=== PATIENT | female | born 1935 | race Caucasian/White ===

== ENCOUNTER 2017-04-30 18:02 | Inpatient (IN) | payer MEDICARE, OTHER ==
[2017-04-30] MEDS ORDERED: Digoxin TAB* 0.125 MG PO ONE (19:45)
[2017-04-30 20:00] LABS: Urine Appearance Clear; Urine Blood Negative (Negative); Urine Color Yellow; Urine Ketones Negative (Negative); Urine Protein Negative (Negative); Urine Specific Gravity 1.009 (1.010-1.030); Urine Urobilinogen Negative (Negative)
--- NOTE | 2017-04-30 20:12 | RAD ---
INDICATION: Syncope. On Coumadin COMPARISON: CT brain August 28, 2015 TECHNIQUE: Noncontrast axial source images were acquired from the skull base to the vertex. FINDINGS: Ventricles/sulci: There is age-related cortical atrophy with compensatory dilatation of the CSF spaces. Brain parenchyma: There is periventricular and subcortical white matter change compatible with chronic ischemia. Intracranial hemorrhage:None. Extra-axial spaces: There are no abnormal extra axial fluid collections or evidence of extra-axial mass. Calvarium: There is no calvarial fracture or other calvarial abnormality. Scalp: There is no evidence of scalp or extracalvarial soft tissue abnormality. Paranasal sinuses/mastoid: The paranasal sinuses and mastoid air cells are clear. Other: None. IMPRESSION: Cortical atrophy with chronic microvascular ischemic change. No acute findings
--- NOTE | 2017-04-30 20:15 | RAD ---
INDICATION: Syncope. Neck pain. COMPARISON: None TECHNIQUE: Noncontrast axial source images was performed from the skull base to the thoracic inlet. Coronal and and sagittal reformatted images were generated. FINDINGS: Vertebrae: There is no fracture or acute focal bony lesion. There is degenerative spurring from the anterior vertebrae from C4 through C7. There is minor uncinate process spurring and facet arthropathy at C5-C6 and C6-C7. Alignment: The craniocervical junction appears normal. The cervical vertebrae are normally aligned. Central Canal: There are no significant CT abnormalities of the central canal or foramina. MR imaging is a more sensitive method to evaluate the canal and foramina. Intervertebral disc spaces: Moderate disc space narrowing at C5-C6 and C6-C7. Brain: The visualized brain appears unremarkable. Soft tissues: The visualized soft tissue elements of the neck are unremarkable. The prevertebral soft tissues appear normal. The lung apices are clear. IMPRESSION: AGE-RELATED MID TO LOWER CERVICAL SPINE OSTEOARTHRITIS. NO ACUTE FINDINGS
--- NOTE | 2017-04-30 20:24 | RAD ---
INDICATION: Right shoulder pain COMPARISON: None TECHNIQUE: AP and Y views were obtained. FINDINGS: There is a comminuted proximal humeral and axial fracture with mild angular deformity. The fractures imaged only in part on this shoulder series The a.c. and glenohumeral joints are intact. IMPRESSION: COMMINUTED PROXIMAL HUMERAL FRACTURE.
--- NOTE | 2017-04-30 20:24 | RAD ---
INDICATION: Proximal humeral fracture COMPARISON: Right shoulder same date TECHNIQUE: AP and lateral views were obtained. FINDINGS: There is a severely comminuted fractures involving the proximal and middle thirds of the humeral diaphysis. There is minor angular deformity. No other fractures are evident. IMPRESSION: COMMINUTED PROXIMAL HUMERAL FRACTURE.
--- NOTE | 2017-04-30 20:24 | RAD ---
INDICATION: Fall. Humeral fracture. COMPARISON: Right humerus same date TECHNIQUE: An seated AP portable view obtained at 2005 hours is submitted. FINDINGS: Bones/Soft Tissues: There is a proximal humeral fracture. Please refer to separate report.. Cardiomediastinal: The cardiomediastinal silhouette is normal. There is left-sided cardiac pacemaker. Lungs: There are no infiltrates. Pleura: There are no pleural effusions. Other: None IMPRESSION: NO ACTIVE CARDIOPULMONARY DISEASE. HUMERAL FRACTURE.
[2017-04-30 20:39] LABS: ABS Basophils 0 10^3/ul (0-0.2); ABS Eosinophils 0 10^3/ul (0-0.6); ABS Lymphocytes 1.6 10^3/ul (1.0-4.8); ABS Monocytes 0.5 10^3/ul (0-0.8); ABS Neutrophils 7.4 10^3/ul (1.5-7.7); ABS Nucleated RBC 0 10^3/ul; Eosinophil % 0.1 % (0-6); Hematocrit 40 % (35-47); Hemoglobin 13.7 g/dl (12.0-16.0); Lymphocyte % 16.6 % (25-47); Mean Corpuscular HGB Conc 35 g/dl (31-36); Mean Corpuscular Hemoglobin 33 pg (27-31); Mean Corpuscular Volume 96 fL (80-97); Mean Platelet Volume 8 um3 (7.4-10.4); Nucleated Red Blood Cells % 0.1; Platelet Count 251 10^3/ul (150-450); Red Blood Count 4.12 10^6/ul (4.0-5.4); Red Cell Distribution Width 14 % (10.5-15); White Blood Count 9.6 10^3/ul (3.5-10.8)
[2017-04-30 20:48] LABS: INR 3.4 (0.77-1.02)
[2017-04-30 20:56] LABS: EGFR Non-African American 83.3 (>60)
[2017-04-30] MEDS ORDERED: Ondansetron INJ* 2 MG/ML VIAL IV ONE (21:03)
[2017-04-30] MEDS ORDERED: Morphine INJ* 2 MG/ML 1 ML CARPUJECT IV ONE (21:03)
[2017-04-30] MEDS ORDERED: Acetaminophen TAB* 325 MG PO ONE (21:04)
[2017-04-30] MEDS ORDERED: Ondansetron INJ* 2 MG/ML VIAL IV PRN (21:52)
[2017-04-30] MEDS ORDERED: Morphine INJ* 2 MG/ML 1 ML CARPUJECT IV PRN (21:52)
[2017-04-30] MEDS ORDERED: Senna TAB PO PRN (21:52)
[2017-04-30] MEDS ORDERED: Al Hydrox/Mg Hydrox/Simet LIQ* 30 ML UDC PO PRN (21:52)
[2017-04-30] MEDS ORDERED: Docusate CAP* 100 MG PO PRN (21:52)
[2017-04-30] MEDS: Acetaminophen TAB* 325 MG PO PRN (23:43)
[2017-04-30] MEDS: Baclofen TAB* 10 MG PO SCH (23:43)
--- NOTE | 2017-05-01 04:46 | HP ---
CC: Jo Leon MD; Lori Chavarria MD * HISTORY AND PHYSICAL: DATE OF ADMISSION: 04/30/17 PRIMARY CARE PHYSICIAN: Jo Leon MD ADVERTISING EXECUTIVE: Lori Chavarria MD TIME OF EVALUATION: 2100. TIME OF EVALUATION: Syncope. HISTORY OF PRESENT ILLNESS: This is an 81-year-old female with a past medical history of CVA with residual left-sided weakness, atrial fibrillation, on anticoagulation, who presented to the emergency room after having a syncopal event. The patient has been under a lot of stress lately. Her partner has been at [facility], is getting discharged home tomorrow. She was standing up from her recliner that raises up. Normally, she puts her feet under her and she stands for a few seconds. This time, she just stood up and then started moving and she thinks she passed out and she thinks her right arm hit the side of the bed. She had her phone on her and was able to call her daughter who was already over at [facility], which is 2 minutes away from her, and came over and called EMS to bring her over here. The patient denies any lightheadedness. No dizziness. No nausea. No shortness of breath. No chest pain. No abdominal pain. No dysuria. No fevers. No URI symptoms. She had a UTI a month ago. Her appetite has been adequate. No medication changes; however, with her partner who has been her primary caregiver being in [facility], she has been administering her own meds and the daughter noticed that there are some doubled up meds including digoxin in her pill box. She does have a history of vasovagal in the past triggered by heat, dehydration, stress, but this happened 12 years ago. Otherwise, remaining review of systems is negative. In the emergency room, the patient had labs, imaging. She was given Zofran 4 mg, 2 mg of morphine, digoxin 0.125 mg, and Tylenol. She had a posterior splint placed on her right humerus fracture and was referred to the hospitalist service for further evaluation. PAST MEDICAL HISTORY: 1. History of presumed vasovagal syncope. 2. History of CVA with residual left-sided weakness, ambulates with a cane. 3. History of atrial fibrillation, on anticoagulation. 4. History of hypothyroidism. 5. History of left humeral fracture in 2014. 6. Hypertension. 7. Pacemaker placed presumably per family due to atrial fibrillation. MEDICATIONS: 1. Amiodarone 200 mg p.o. daily. 2. Baclofen 2 mg t.i.d. 3. Cardizem 120 mg p.o. daily. 4. Warfarin 2 mg daily. 5. Digoxin 25 mcg daily. 6. Levothyroxine 100 mcg daily. 7. Atorvastatin 40 mg daily. 8. Losartan 50 mg daily. 9. Glucosamine chondroitin daily. 10. Magnesium complex 600 mg p.o. b.i.d. 11. Vitamin C SR 1000 mg daily. 12. Vitamin D3 2000 international units daily. ALLERGIES: SULFA, SULFAMETHOXAZOLE, and TRIMETHOPRIM. SOCIAL HISTORY: The patient lives at home. Her partner, Ankita White, who has been at [facility] for a back injury is getting released tomorrow, who is normally her primary caregiver. She ambulates with a cane. She is independent with her ADLs. No smoking, alcohol, or illicit drug use history. Her healthcare proxy is Ankita White, her partner. Code status at this point is full code. I did give a MOLST form to review. FAMILY HISTORY: Mother at age 76 from cardiac issues. Father at age 56 from lung cancer. REVIEW OF SYSTEMS: A 14-point review of systems as mentioned in the HPI, otherwise negative. PHYSICAL EXAMINATION GENERAL: No acute distress. Resting comfortably with her daughter at bedside. VITAL SIGNS: Temp 97.6, pulse rate 86, respiratory rate 16, oxygen saturation 96% on room air, and blood pressure 168/100. HEENT: Head: Normocephalic. Pupils are equal and reactive, anicteric. Oropharynx: Mucous membranes are moist. NECK: Supple. No lymphadenopathy. RESPIRATORY: Diminished breath sounds. No wheezing, rhonchi, or rales. CARDIAC: Regular rate and rhythm. Soft systolic murmur heard throughout. ABDOMEN: Soft, nontender, nondistended. EXTREMITIES: No clubbing, cyanosis, or edema. +1 DPs. The patient with a splint in her right upper extremity. Good cap refill. Fingers are warm. NEUROLOGIC: Alert and oriented x3. No focal neurologic deficits. LABORATORY DATA: White count 9.6, hemoglobin 13.7, hematocrit 40, platelets 251. INR is 3.40. Sodium 136, potassium 4.2, chloride 102, bicarb 26, BUN 14, creatinine 0.68, glucose 128. AST 61. Troponin 0.01. TSH is 3.0. UA is unremarkable. RADIOGRAPHIC DATA: 1. Head CT: Cortical atrophy with chronic microvascular ischemic change, no acute findings. 2. Chest x-ray: No active cardiopulmonary disease. 3. EKG shows paced rhythm and flattened T waves. 4. Cervical spine CT: Age-related mid to lower cervical spine osteoarthritis, no acute findings. 5. Shoulder x-ray: Comminuted proximal humeral fracture. ASSESSMENT: This is an 81-year-old female with past medical history of CVA with residual left-sided weakness, who has pacemaker due to atrial fibrillation , presented to the emergency room with syncope suffering a right comminuted humerus fracture. 1. Syncope. Assessment: Family states she has a history of vasovagal syncope in the past; however, no prodromal symptoms. It was on standing. There is concern for polypharmacy as she has not been dosing her medications inappropriately. There is also concern for a cardiac event. She is asymptomatic at this time. Plan: We will check a digoxin level before resuming this. She did get a dose in the emergency room. We will continue her cardiac medications as prescribed. Continue to trend her troponin. Check an echocardiogram. Recommend having her pacemaker interrogated in the morning. 2. Right humerus comminuted fracture. I spoke with Dr. Henry and she will see her in the morning. Consult has been placed. We will order pain control and bowel regimen. 3. Chronic medical problems, atrial fibrillation, on anticoagulation. She is supratherapeutic on her Coumadin. We will have pharmacy doses and hold her dose for today. Continue her Cardizem. 4. History of stroke. Continue her baclofen. 5. Hyperlipidemia. Continue her atorvastatin. 6. Hypothyroidism. Continue her Synthroid. 7. FEN. Place the patient on heart healthy diet. 8. DVT prophylaxis. The patient is on Coumadin. 9. Disposition planning, we will place a PT consult with residual left-sided weakness and the patient is using her right arm to ambulate with a cane. She may need acute rehab. 10. Code status. Full code. They have been given a MOLST form to review. PATIENT TIME: Greater than 65 minutes was spent doing the history and physical , more than half the time was in direct patient contact. [id number]/[facility] #: [id number] [facility] MED[facility] CENTERKristopher
[2017-05-01] MEDS: Acetaminophen TAB* 325 MG PO PRN (05:56)
[2017-05-01] MEDS: Levothyroxine TAB* 100 MCG TAB PO SCH (05:56)
[2017-05-01 06:06] LABS: ABS Basophils 0 10^3/ul (0-0.2); ABS Eosinophils 0 10^3/ul (0-0.6); ABS Lymphocytes 2.2 10^3/ul (1.0-4.8); ABS Monocytes 0.7 10^3/ul (0-0.8); ABS Neutrophils 7.1 10^3/ul (1.5-7.7); ABS Nucleated RBC 0 10^3/ul; Eosinophil % 0.1 % (0-6); Hematocrit 35 % (35-47); Hemoglobin 12.2 g/dl (12.0-16.0); Lymphocyte % 21.6 % (25-47); Mean Corpuscular HGB Conc 35 g/dl (31-36); Mean Corpuscular Hemoglobin 33 pg (27-31); Mean Corpuscular Volume 96 fL (80-97); Mean Platelet Volume 8 um3 (7.4-10.4); Nucleated Red Blood Cells % 0.1; Platelet Count 231 10^3/ul (150-450); Red Cell Distribution Width 14 % (10.5-15); White Blood Count 10.1 10^3/ul (3.5-10.8)
[2017-05-01 06:13] LABS: INR 3.09 (0.77-1.02)
[2017-05-01 06:23] LABS: EGFR Non-African American 89.3 (>60)
[2017-05-01] MEDS: Magnesium Oxide TAB* 400 MG PO SCH (08:28)
[2017-05-01] MEDS: Diltiazem CD CAP* 120 MG PO SCH (08:28)
[2017-05-01] MEDS: Baclofen TAB* 10 MG PO SCH ×3 (08:28→20:57)
[2017-05-01] MEDS: Losartan TAB* 25 MG PO SCH (08:28)
[2017-05-01] MEDS: Amiodarone TAB* 200 MG PO SCH (08:29)
[2017-05-01] MEDS: oxyCODONE/Acetamin 5/325 MG* TAB PO PRN (09:55)
--- NOTE | 2017-05-01 12:06 | ECHO ---
Patient: LEONEL CRUZ [facility] Rec#: [id number] : 1935 Date: 05/01/2017 Age: 81y Height: 167.6 cm / 66.0 in Weight: 62.6 kg / 138.0 lbs Sex: F BSA: 1.7 Room#: 440 Admit Date#: 04/30/2017 Type: Inpatient Referring: Teresa Appiah Reading: Yoel Henriquez MD Control Panel Tester: Marlen Montero RN RDCS CC: Lori Chavarria MD CC: Jo Leon MD Transthoracic Echocardiogram Indication: Syncope BP: 119/61 HR: 61 Rhythm: Paced Findings History: A. fib, pacemaker, HTN, CVA, hypothyroidism. Technical Comments: The study quality is fair. Completed at 1140. Left Ventricle: The left ventricular chamber size is normal. Mild concentric left ventricular hypertrophy is observed. There is increased basal septal hypertrophy noted without evidence of an increased gradient across the left ventricular outflow tract. Global left ventricular wall motion and contractility are within normal limits. There is normal left ventricular systolic function. The estimated ejection fraction is 55-60%. There is abnormal ventricular septal wall motion consistent with right ventricular pacemaker. There is an E to A reversal in the mitral valve flow pattern suggestive of diastolic dysfunction. Left Atrium: The left atrial chamber size is normal. Right Ventricle: The right ventricular cavity size is normal. The right ventricular global systolic function is normal. Right Atrium: The right atrium is not well visualized. The right atrial cavity size is normal. Aortic Valve: The aortic valve is trileaflet. The aortic valve leaflets are mildly thickened. There is mild aortic regurgitation. There is no evidence of aortic stenosis. Mitral Valve: The mitral valve leaflets are mildly thickened. There is mild mitral regurgitation. There is no evidence of mitral stenosis. Tricuspid Valve: The tricuspid valve leaflets are normal. There is trace tricuspid regurgitation. Unable to estimate the right ventricular systolic pressure. There is no tricuspid stenosis. Pulmonic Valve: The pulmonic valve structure is not well visualized. There is no evidence of pulmonic regurgitation. There is no pulmonic stenosis. Pericardium: There is no significant pericardial effusion. A pericardial fat pad is visualized. Aorta: There is no dilatation of the ascending aorta. There is no dilatation of the aortic arch. There is no dilation of the aortic root. Pulmonary Artery: The main pulmonary artery is not well visualized. Venous: The inferior vena cava is not visualized. Summary: There are no significant changes when compared to the previous study done on 09/04/14 Conclusions Global left ventricular wall motion and contractility are within normal limits. There is normal left ventricular systolic function. The estimated ejection fraction is 55-60%. There is increased basal septal hypertrophy noted without evidence of an increased gradient across the left ventricular outflow tract. The right ventricular global systolic function is normal. There is mild aortic regurgitation. There is mild mitral regurgitation. There is trace tricuspid regurgitation. Unable to estimate the right ventricular systolic pressure. There is no dilatation of the ascending aorta. There are no significant changes when compared to the previous study done on 09/04/14 Measurements Name Value Normal Range RVDdMajor (2D) 2.6 cm (2.2 - 4.4) RAd ISD 4CH 4.8 cm (3.4 - 4.9) RA (A4C)W 2.9 cm (2.9 - 4.6) IVSd (2D) 1.1 cm (0.6 - 1) LVPWd (2D) 1.1 cm (0.6 - 1) LVIDd (2D) 4.4 cm (3.6 - 5.4) Aortic Annulus 1.9 cm (1.4 - 2.6) Ao root diameter (2D) 3.3 cm (2.1 - 3.5) Ascending Ao 3.4 cm (2.1 - 3.4) Aortic arch 2 cm (1.8 - 3.4) LA dimension (AP) 2D 3.6 cm (2.3 - 3.8) LAd ISD 4CH 5 cm (2.9 - 5.3) LA ISD 4CH W 3.6 cm (2.5 - 4.5) Name Value Normal Range LA ESV SP 4CH (A/L) 36 ml - LA ESV SP 2CH (A/L) 24 ml - LA ESV BP (A/L) 34 ml - LA ESV BP (A/L) index 20 ml/m2 - LA ESV SP 4CH (MOD) 35 ml - LA ESV SP 2CH (MOD) 23 ml - Name Value Normal Range MV E-wave Vmax 0.45 m/sec - MV deceleration time 283 msec - MV A-wave Vmax 1.1 m/sec - MV E:A ratio 0.4 ratio - LV septal e' Vmax 0.05 m/sec - LV lateral e' Vmax 0.08 m/sec - LV E:e' septal ratio 9 ratio - LV E:e' lateral ratio 5.6 ratio - Name Value Normal Range AV Vmax 1.4 m/sec - AV VTI 32 cm - AV peak gradient 7.3 mmHg - AV mean gradient 4.3 mmHg - LVOT Vmax 0.87 m/sec - LVOT VTI 19.9 cm - LVOT peak gradient 3 mmHg - LVOT mean gradient 1.8 mmHg - DAYANA Vmax 0.54 m/sec - Name Value Normal Range PV Vmax 0.71 m/sec -
--- NOTE | 2017-05-01 12:57 | PN ---
Subjective Date of Service: 05/01/17 Interval History: Pt is feeling well. She states the pain in her R wrist is controlled if she does not move. She states Dr. Henry was in this AM and recommended changing out her cast this afternoon. She has not had any episodes of CP, SOB or lightheadedness. Objective Active Medications: Acetaminophen (Tylenol Tab*) 650 mg PO Q4H PRN PRN Reason: FEVER/PAIN Last Admin: 05/01/17 05:56 Dose: 650 mg Al Hydrox/Mg Hydrox/Simethicone (Maalox Plus*) 30 ml PO Q6H PRN PRN Reason: INDIGESTION Amiodarone HCl (Cordarone Tab*) 200 mg PO DAILY [facility] Last Admin: 05/01/17 08:29 Dose: 200 mg Atorvastatin Calcium (Lipitor*) 40 mg PO 2100 [facility] Baclofen (Lioresal Tab*) 5 mg PO TID [facility] Last Admin: 05/01/17 08:28 Dose: 5 mg Digoxin (Lanoxin Tab*) 0.125 mg PO 1700 [facility] Diltiazem HCl (Cardizem Cd Cap*) 120 mg PO DAILY [facility] Last Admin: 05/01/17 08:28 Dose: 120 mg Docusate Sodium (Colace Cap*) 100 mg PO BID PRN PRN Reason: CONSTIPATION Levothyroxine Sodium (Synthroid Tab*) 100 mcg PO DAILY@0600 [facility] Last Admin: 05/01/17 05:56 Dose: 100 mcg Losartan Potassium (Cozaar Tab*) 50 mg PO DAILY [facility] Last Admin: 05/01/17 08:28 Dose: 50 mg Magnesium Oxide (Magox 400 Tab*) 400 mg PO DAILY [facility] Last Admin: 05/01/17 08:28 Dose: 400 mg Morphine Sulfate (Morphine Inj (Syringe)*) 2 mg IV Q4H PRN PRN Reason: PAIN Ondansetron HCl (Zofran Inj*) 4 mg IV Q4H PRN PRN Reason: NAUSEA/VOMITING Oxycodone/Acetaminophen (Percocet 5/325 Tab*) 1 tab PO Q4H PRN PRN Reason: Pain Last Admin: 05/01/17 09:55 Dose: 1 tab Pharmacy Profile Note (Coumadin Per Pharmacy*) 1 note FOLLOW UP .PER PHARMACY PROTOC [facility] PRN Reason: Protocol Pharmacy Profile Note (Coumadin Daily Reminder*) 1 note FOLLOW UP 1700 [facility] Senna (Senokot Tab*) 1 tab PO BID PRN PRN Reason: CONSTIPATION Warfarin Sodium (Coumadin Tab(*)) 2 mg PO 1700 [facility] Stop: 05/01/17 17:01 Vital Signs - 8 hr 05/01/17 05/01/17 05/01/17 07:44 09:00 09:55 Temperature 97.7 F Pulse Rate 63 Respiratory 16 16 16 Rate Blood Pressure 133/61 (mmHg) O2 Sat by Pulse 96 Oximetry 05/01/17 11:55 Temperature Pulse Rate Respiratory 16 Rate Blood Pressure (mmHg) O2 Sat by Pulse Oximetry Oxygen Devices in Use Now: None Appearance: Elderly female sitting up in bed, NAD Eyes: No Scleral Icterus Ears/Nose/Mouth/Throat: Mucous Membranes Moist Respiratory: Symmetrical Chest Expansion and Respiratory Effort, Clear to Auscultation Cardiovascular: NL Sounds; No Murmurs; No JVD, RRR, No Edema Abdominal: NL Sounds; No Tenderness; No Distention Extremities: No Clubbing, Cyanosis, - - R upper extremity in clean dry cast Skin: No Nodules or Sclerosis Neurological: Alert and Oriented x 3 Result Diagrams: 05/01/17 05:58 05/01/17 05:58 Assess/Plan/Problems-Billing Ms Drummond is an 81 yo F who has a h/o CVA with chronic L sided weakness, HTN, afib on coumadin and past h/o vasovagal syncope who presented to the ER after having a syncopal episode at home with resultant R comminuted humerus fracture. - Patient Problems (1) Syncope Current Visit: Yes Status: Acute Code(s): R55 - SYNCOPE AND COLLAPSE SNOMED Code(s): 882476374 Comment: ? orthostatic syncope as pt had just stood up before she passed out. Echo is without any concerning findings. No tele events. (2) Right humeral fracture Current Visit: Yes Status: Acute Code(s): S42.301A - UNSP FRACTURE OF SHAFT OF HUMERUS, RIGHT ARM, INIT SNOMED Code(s): 93511944 Comment: Dr. Henry has consulted. No report transcribed yet. From the patient it sounds like her cast will be replaced this afternoon. Continue prn pain control. (3) Afib Current Visit: Yes Status: Chronic Priority: High Code(s): I48.91 - UNSPECIFIED ATRIAL FIBRILLATION SNOMED Code(s): 70411545 Comment: Pt is currently paced. Continue digoxin and amiodarone. Continue coumadin as pt is not going to the OR. (4) HTN (hypertension) Current Visit: Yes Status: Acute Code(s): I10 - ESSENTIAL (PRIMARY) HYPERTENSION SNOMED Code(s): 83077468 Comment: BP is under good control. Continue losartan 50mg daily. (5) DVT prophylaxis Current Visit: Yes Status: Acute Priority: High Onset Date: 09/27/14 Code(s): CYL9586 - SNOMED Code(s): 003671859 Comment: Coumadin (6) Full code status Current Visit: Yes Status: Acute Code(s): Z78.9 - OTHER SPECIFIED HEALTH STATUS SNOMED Code(s): 665841516 (7) Hypothyroidism Current Visit: No Status: Chronic Code(s): E03.9 - HYPOTHYROIDISM, UNSPECIFIED SNOMED Code(s): 55490000 Comment: - TSH is normal - Continue current dose of synthroid.
--- NOTE | 2017-05-01 16:01 | PN ---
Progress Note - Progress Note Date of Service: 05/01/17 SOAP: Subjective: Pt. is doing well, 4/10 pain. Objective: RUE - skin intact - distally nvi with intact radial nerve before and after splint placement. Vital Signs: Temp Pulse Resp BP Pulse Ox 98.2 F 60 20 130/60 98 05/01/17 11:32 05/01/17 11:32 05/01/17 15:40 05/01/17 11:32 05/01/17 11:32 Assessment: 81 yo F s/p fall with comminuted displaced R humeral shaft fx Plan: Pt. had a posterior splint in place which ended at fx site - this was removed. Well padded coaptation splint applied to R arm. Pt. tolerated procedure well. Will obtain new R humerus and elbow xrays. F/u with Dr. Henry in 5-7 days for splint change.
[2017-05-01] MEDS ORDERED: Warfarin TAB(*) 2 MG PO ONE (17:00)
--- NOTE | 2017-05-01 17:15 | RAD ---
HISTORY: Status post splint placement COMPARISONS: April 30, 2017 VIEWS: 7, Frontal, lateral, and oblique views of the right elbow with frontal internal and external rotation views of the right humerus, performed in a splint which appears fine bone detail. FINDINGS: BONE DENSITY: Normal. BONES: Again noted is a comminuted fracture of the proximal humeral diaphysis. There is persistent displacement without significant angulation. The radial head is not well evaluated given the technique and the presence of a splint but appears to be dysplastic or possibly surgically absent. JOINTS: There is no arthropathy. ALIGNMENT: There is no dislocation. SOFT TISSUES: Unremarkable. OTHER FINDINGS: None. IMPRESSION: 1. LIMITED STUDY. 2. PERSISTENT COMMINUTED FRACTURE OF THE HUMERAL DIAPHYSIS. 3. QUESTIONABLE POSTSURGICAL VERSUS CHRONIC POST RIGHT CHANGES TO THE RADIAL HEAD. THE RADIAL HEAD IS NOT WELL EVALUATED GIVEN THE TECHNIQUE.
[2017-05-01] MEDS: Digoxin TAB* 0.125 MG PO SCH (17:22)
--- NOTE | 2017-05-01 17:36 | CONS ---
ORTHOPEDIC CONSULT NOTE: DATE OF CONSULT: 05/01/17 Thank you for this orthopedic consultation. CHIEF COMPLAINT: Right shoulder pain. HISTORY OF PRESENT ILLNESS: Ms. Drummond is an 81-year-old right hand dominant female who had a syncopal episode in her home. She reports she thinks this is vasovagal. She stood up and start moving without standing for a few seconds. She had loss of control of her bowels at the same time and she fell. She woke up with 10/10 pain in the right shoulder and arm. Any attempt to move the arm increased her pain, only immobilization decreased her pain. She was brought to [facility] and diagnosed with right humeral shaft fracture. I am consulted for orthopedic fracture care. She was admitted for observation and further evaluation of a syncopal episode. The patient denies pain elsewhere from the fall. PAST MEDICAL HISTORY: 1. History of vasovagal syncope. 2. CVA with residual left-sided weakness. 3. Atrial fibrillation. 4. Hypothyroidism. 5. Left femur fracture, 2014. 6. Hypertension. PAST SURGICAL HISTORY: 1. Pacemaker placement. 2. Left femur ORIF. HOME MEDICATIONS: 1. Amiodarone 200 mg p.o. daily. 2. Baclofen 2 mg p.o. t.i.d. 3. Cardizem 120 mg p.o. daily. 4. Warfarin 2 mg p.o. daily. 5. Digoxin 25 mcg p.o. daily. 6. Levothyroxine 100 mcg p.o. daily. 7. Atorvastatin 40 mg p.o. daily. 8. Losartan 50 mg p.o. daily. 9. Glucosamine and chondroitin 1 tablet p.o. daily. 10. Magnesium 600 mg p.o. b.i.d. 11. Vitamin C 1000 mg p.o. daily. 12. Vitamin D3, 2000 international units p.o. daily. ALLERGIES: 1. SULFA. 2. SULFAMETHOXAZOLE AND TRIMETHOPRIM. FAMILY HISTORY: Maternal, cardiac disease. Paternal, lung cancer. SOCIAL HISTORY: The patient lives at home with her . Her has been at [facility] for a lumbar compression fracture and has been discharged to home today. The patient normally ambulates with a cane due to left-sided weakness. No tobacco, alcohol, or recreational drug use. She has a daughter who lives close by and is very helpful. She has a full social support system. REVIEW OF SYSTEMS: The 14 systems were reviewed with the patient. Positive for the right shoulder and upper arm pain. Positive for the recent syncopal episode and fall. Negative for fevers, chills, chest pain, shortness of breath , nausea, vomiting, and headache or dizziness. Otherwise, the patient reports review of systems is negative or not relevant. PHYSICAL EXAM: Vital Signs: Temperature 98.2, pulse 63, blood pressure 119/ 61. General: The patient is a well-nourished female, in no apparent distress, alert and oriented x3, pleasant mood and appropriate affect. Chest: Unlabored breathing. HEENT: Atraumatic, normocephalic. Extremities: Right upper extremity, the patient has a posterior splint applied to the right upper extremity. No tenderness around the clavicle or proximal shoulder. Distally, she shows full extension of her thumb and all 4 fingers. Radial nerve appears to be intact with both motor and sensory. She has full sensation to light touch in all nerve distributions. Can give thumbs up and the okay sign as well as cross fingers. Less than 3 seconds capillary refill distally. 2+ palpable radial pulse. Left upper extremity, she can raise the arm. No bony tenderness to palpation. 2+ palpable radial pulse. Neurovascularly intact. Bilateral lower extremities, the patient's skin is intact. She has a healed left scar along her proximal femur. Distally, she is neurovascularly intact. 2+ palpable DP pulses. DIAGNOSTIC STUDIES/LAB DATA: Radiographs: Multiple views of the right shoulder and humerus show a displaced comminuted fracture of the entire proximal one third to 50% of the humeral shaft. The proximal humerus intra- articular region is not involved. Labs: On 05/01/17, labs show white blood cell 10.1, hematocrit 35, and platelets 231,000. INR 3.09. Sodium 133, potassium 4.2, chloride 103, BUN and creatinine 14 and 0.64 respectively. Urine is negative. Digoxin 1.0. ASSESSMENT AND PLAN: Ms. Drummond is an 81-year-old right hand dominant female status post syncopal episode and fall. She has a right displaced comminuted proximal humeral shaft fracture. The patient and I discussed both operative and nonoperative treatment options. She would like to try to heal this nonoperatively if at all possible. We discussed the risks and benefits of this. The patient is currently neurovascularly intact and in no apparent distress. We discussed a coaptation splint placement. I will need another dental assistant teacher for this. Plan will be to return later today to place a coaptation splint. Once she has formed callus, we can place her in a Beckett brace. She should have p.r.n. analgesia. She should be nonweightbearing right upper extremity. She will have the sling for comfort over the splint for now. Orthopedics will follow and change the splint today. [id number]/[facility] #: [id number] JASVIR
[2017-05-01] MEDS: Atorvastatin* 40 MG TAB PO SCH (20:57)
--- NOTE | 2017-05-02 01:52 | PN ---
Progress Note - Progress Note Date of Service: 05/02/17 Note: CAT call - Patient using bathroom with assistance. Stated she was felling lightheaded. As they walked her back to her bed she had a syncopal episode with LOC. Her vitals were ok. Paced rhythm on tele. She appeared pale and diaphoretic. Stated she felt weak. EKG showed atrial fib. Glucose >100. No chest pain. Appears vasovagal. Will give 500 cc bolus. REcommend pacer interrogation in AM
[2017-05-02] MEDS ORDERED: NS 0.9% 1000 ML* 1,000 ML IV ONE (01:54)
[2017-05-02 02:18] LABS: ABS Basophils 0.1 10^3/ul (0-0.2); ABS Eosinophils 0 10^3/ul (0-0.6); ABS Lymphocytes 4.1 10^3/ul (1.0-4.8); ABS Neutrophils 8.4 10^3/ul (1.5-7.7); ABS Nucleated RBC 0 10^3/ul; Eosinophil % 0.2 % (0-6); Hematocrit 36 % (35-47); Hemoglobin 12.1 g/dl (12.0-16.0); Lymphocyte % 30.4 % (25-47); Mean Corpuscular HGB Conc 34 g/dl (31-36); Mean Corpuscular Hemoglobin 33 pg (27-31); Mean Corpuscular Volume 97 fL (80-97); Mean Platelet Volume 9 um3 (7.4-10.4); Nucleated Red Blood Cells % 0.1; Platelet Count 268 10^3/ul (150-450); Red Blood Count 3.71 10^6/ul (4.0-5.4); Red Cell Distribution Width 14 % (10.5-15); White Blood Count 13.6 10^3/ul (3.5-10.8)
[2017-05-02 02:24] LABS: INR 2.69 (0.77-1.02)
[2017-05-02 02:38] LABS: EGFR Non-African American 74.4 (>60)
[2017-05-02] MEDS: Levothyroxine TAB* 100 MCG TAB PO SCH (06:02)
--- NOTE | 2017-05-02 07:13 | PN ---
Progress Note - Progress Note Date of Service: 05/02/17 SOAP: Subjective: Pt. reports R arm with moderate pain. She reports she had LOC overnight. Objective: RUE - sling intact - distally nvi with wrist/finger extension. Vital Signs: Temp Pulse Resp BP Pulse Ox 98.3 F 80 16 119/64 94 05/02/17 04:30 05/02/17 04:30 05/02/17 04:30 05/02/17 04:30 05/02/17 04:30 Laboratory Results - last 24 hr 05/02/17 05/02/17 05/02/17 01:40 02:10 02:10 WBC 13.6 H RBC 3.71 L Hgb 12.1 Hct 36 MCV 97 MCH 33 H MCHC 34 RDW 14 Plt Count 268 MPV 9 Neut % (Auto) 61.8 Lymph % (Auto) 30.4 Andrews % (Auto) 7.0 Eos % (Auto) 0.2 Baso % (Auto) 0.6 Absolute Neuts (auto) 8.4 H Absolute Lymphs (auto) 4.1 Absolute Monos (auto) 1.0 H Absolute Eos (auto) 0 Absolute Basos (auto) 0.1 Absolute Nucleated RBC 0 Nucleated RBC % 0.1 INR (Anticoag Therapy) 2.69 H Sodium Potassium Chloride Carbon Dioxide Anion Gap BUN Creatinine Est GFR ( Amer) Est GFR (Non-Af Amer) BUN/Creatinine Ratio Glucose POC Glucose (mg/dL) 161 H Calcium Troponin I 05/02/17 02:10 WBC RBC Hgb Hct MCV MCH MCHC RDW Plt Count MPV Neut % (Auto) Lymph % (Auto) Andrews % (Auto) Eos % (Auto) Baso % (Auto) Absolute Neuts (auto) Absolute Lymphs (auto) Absolute Monos (auto) Absolute Eos (auto) Absolute Basos (auto) Absolute Nucleated RBC Nucleated RBC % INR (Anticoag Therapy) Sodium 134 Potassium 4.0 Chloride 102 Carbon Dioxide 22 Anion Gap 10 BUN 16 Creatinine 0.75 Est GFR ( Amer) 95.6 Est GFR (Non-Af Amer) 74.4 BUN/Creatinine Ratio 21.3 H Glucose 169 H POC Glucose (mg/dL) Calcium 8.9 Troponin I 0.00 Assessment: 81 yo F with recurrent syncopal episodes - R humeral shaft fx we are treating nonop Plan: Cont splint and sling to RUE NWB RUE F/u ortho in 5-7 days. Ortho to follow
[2017-05-02] MEDS: Acetaminophen TAB* 325 MG PO PRN (09:28)
[2017-05-02] MEDS: Losartan TAB* 25 MG PO SCH (09:28)
[2017-05-02] MEDS: Baclofen TAB* 10 MG PO SCH ×3 (09:29→21:29)
[2017-05-02] MEDS: Amiodarone TAB* 200 MG PO SCH (09:29)
[2017-05-02] MEDS: Magnesium Oxide TAB* 400 MG PO SCH (09:30)
[2017-05-02] MEDS: Diltiazem CD CAP* 120 MG PO SCH (09:30)
--- NOTE | 2017-05-02 12:29 | PN ---
Subjective Date of Service: 05/02/17 Interval History: syncope after using bathroom last night. vomited afterward. got 500cc bolus. no events on tele during event s/p PPM check yesterday. Original event 5pm sunday after BM. orthostatic this AM. usually right handed. pain controlled. last BM sunday. Objective Active Medications: Acetaminophen (Tylenol Tab*) 650 mg PO Q4H PRN PRN Reason: FEVER/PAIN Last Admin: 05/02/17 09:28 Dose: 650 mg Al Hydrox/Mg Hydrox/Simethicone (Maalox Plus*) 30 ml PO Q6H PRN PRN Reason: INDIGESTION Amiodarone HCl (Cordarone Tab*) 200 mg PO DAILY [facility] Last Admin: 05/02/17 09:29 Dose: 200 mg Atorvastatin Calcium (Lipitor*) 40 mg PO 2100 [facility] Last Admin: 05/01/17 20:57 Dose: 40 mg Baclofen (Lioresal Tab*) 5 mg PO TID [facility] Last Admin: 05/02/17 09:29 Dose: 5 mg Digoxin (Lanoxin Tab*) 0.125 mg PO 1700 [facility] Last Admin: 05/01/17 17:22 Dose: 0.125 mg Diltiazem HCl (Cardizem Cd Cap*) 120 mg PO DAILY [facility] Last Admin: 05/02/17 09:30 Dose: 120 mg Docusate Sodium (Colace Cap*) 100 mg PO BID PRN PRN Reason: CONSTIPATION Last Admin: 05/02/17 09:30 Dose: 100 mg Sodium Chloride (Ns 0.9% 1000 Ml*) 1,000 mls @ 150 mls/hr IV PER RATE [facility] Stop: 05/02/17 18:29 Levothyroxine Sodium (Synthroid Tab*) 100 mcg PO DAILY@0600 [facility] Last Admin: 05/02/17 06:02 Dose: 100 mcg Losartan Potassium (Cozaar Tab*) 50 mg PO DAILY [facility] Last Admin: 05/02/17 09:28 Dose: 50 mg Magnesium Oxide (Magox 400 Tab*) 400 mg PO DAILY [facility] Last Admin: 05/02/17 09:30 Dose: 400 mg Morphine Sulfate (Morphine Inj (Syringe)*) 2 mg IV Q4H PRN PRN Reason: PAIN Last Admin: 05/01/17 15:40 Dose: 2 mg Ondansetron HCl (Zofran Inj*) 4 mg IV Q4H PRN PRN Reason: NAUSEA/VOMITING Last Admin: 05/02/17 02:00 Dose: 4 mg Oxycodone/Acetaminophen (Percocet 5/325 Tab*) 1 tab PO Q4H PRN PRN Reason: Pain Last Admin: 05/01/17 09:55 Dose: 1 tab Pharmacy Profile Note (Coumadin Per Pharmacy*) 1 note FOLLOW UP .PER PHARMACY PROTOC [facility] PRN Reason: Protocol Pharmacy Profile Note (Coumadin Daily Reminder*) 1 note FOLLOW UP 1700 [facility] Last Admin: 05/01/17 17:23 Dose: 1 note Senna (Senokot Tab*) 1 tab PO BID PRN PRN Reason: CONSTIPATION Last Admin: 05/02/17 09:30 Dose: 1 tab Warfarin Sodium (Coumadin Tab(*)) 2 mg PO 1700 [facility] Stop: 05/02/17 17:01 Vital Signs - 8 hr 05/02/17 05/02/17 05/02/17 04:30 07:28 08:00 Temperature 98.3 F 98.6 F Pulse Rate 80 66 Respiratory 16 16 16 Rate Blood Pressure 119/64 118/54 (mmHg) O2 Sat by Pulse 94 96 Oximetry 05/02/17 05/02/17 10:57 10:58 Temperature Pulse Rate 80 80 Respiratory Rate Blood Pressure 135/64 110/51 (mmHg) O2 Sat by Pulse Oximetry Oxygen Devices in Use Now: None Appearance: NAD Eyes: No Scleral Icterus, PERRLA Ears/Nose/Mouth/Throat: NL Teeth, Lips, Gums, Mucous Membranes Moist Neck: NL Appearance and Movements; NL JVP Respiratory: Symmetrical Chest Expansion and Respiratory Effort, Clear to Auscultation Cardiovascular: NL Sounds; No Murmurs; No JVD, RRR Abdominal: NL Sounds; No Tenderness; No Distention, No Hepatosplenomegaly Extremities: No Edema, No Clubbing, Cyanosis, - - right arm in splint and sling. Skin: No Rash or Ulcers, No Nodules or Sclerosis Neurological: Alert and Oriented x 3, NL Sensation, - - right arm in splint and sling. Nutrition: Taking PO's Result Diagrams: 05/02/17 02:10 05/02/17 02:10 Additional Lab and Data: Laboratory Results - last 24 hr 03/05/02/17 05/02/17 01:40 02:10 02:10 WBC 13.6 H RBC 3.71 L Hgb 12.1 Hct 36 MCV 97 MCH 33 H MCHC 34 RDW 14 Plt Count 268 MPV 9 Neut % (Auto) 61.8 Lymph % (Auto) 30.4 [place] % (Auto) 7.0 Eos % (Auto) 0.2 Baso % (Auto) 0.6 Absolute Neuts (auto) 8.4 H Absolute Lymphs (auto) 4.1 Absolute Monos (auto) 1.0 H Absolute Eos (auto) 0 Absolute Basos (auto) 0.1 Absolute Nucleated RBC 0 Nucleated RBC % 0.1 INR (Anticoag Therapy) 2.69 H Sodium Potassium Chloride Carbon Dioxide Anion Gap BUN Creatinine Est GFR ( Amer) Est GFR (Non-Af Amer) BUN/Creatinine Ratio Glucose POC Glucose (mg/dL) 161 H Calcium Troponin I 05/02/17 02:10 WBC RBC Hgb Hct MCV MCH MCHC RDW Plt Count MPV Neut % (Auto) Lymph % (Auto) [place] % (Auto) Eos % (Auto) Baso % (Auto) Absolute Neuts (auto) Absolute Lymphs (auto) Absolute Monos (auto) Absolute Eos (auto) Absolute Basos (auto) Absolute Nucleated RBC Nucleated RBC % INR (Anticoag Therapy) Sodium 134 Potassium 4.0 Chloride 102 Carbon Dioxide 22 Anion Gap 10 BUN 16 Creatinine 0.75 Est GFR ( Amer) 95.6 Est GFR (Non-Af Amer) 74.4 BUN/Creatinine Ratio 21.3 H Glucose 169 H POC Glucose (mg/dL) Calcium 8.9 Troponin I 0.00 Assess/Plan/Problems-Billing Ms Drummond is an 81 yo F who has a h/o CVA with chronic L sided weakness, HTN, afib on coumadin and past h/o vasovagal syncope who presented to the ER after having a syncopal episode at home with resultant R comminuted humerus fracture. - Patient Problems (1) Syncope Current Visit: Yes Status: Acute Code(s): R55 - SYNCOPE AND COLLAPSE SNOMED Code(s): 528617159 Comment: likely orthostatic syncope as pt had just stood up before she passed out. Orthostatic by BP (HR paced) this AM again. given more IVF. continue PT. Pt is not bedrest. OT ordered as pt is right handed using cane but now nonweight bearing. Pt may benefit from MARCO ANTONIO. Echo is without any concerning findings. No tele events during observed episode. (2) Right humeral fracture Current Visit: Yes Status: Acute Code(s): S42.301A - UNSP FRACTURE OF SHAFT OF HUMERUS, RIGHT ARM, INIT SNOMED Code(s): 93704352 Comment: Dr. Henry outpatient followup on Tuesday 05/09 9am nonoperative management w/ sling and splint. PT ordered OT. uses cane and is right handed at baseline. may need MARCO ANTONIO. Continue prn pain control. (3) DVT prophylaxis Current Visit: Yes Status: Acute Priority: High Onset Date: 09/27/14 Code(s): GTK0962 - SNOMED Code(s): 855563861 Comment: on coumadin for AFib. INR 2.69 (4) HTN (hypertension) Current Visit: Yes Status: Acute Code(s): I10 - ESSENTIAL (PRIMARY) HYPERTENSION SNOMED Code(s): 97793769 Comment: BP is under good control. Continue losartan 50mg daily. (5) Anemia Current Visit: No Status: Acute Priority: Medium Onset Date: 09/27/14 Code(s): D64.9 - ANEMIA, UNSPECIFIED SNOMED Code(s): 950959851 Comment: - 1U PRBC 09/21/14 with appropriate bump in h/h - iron studies c/w iron deficiency - Continue oral iron Status and Disposition: medicine inpatient.
[2017-05-02] MEDS ORDERED: NS 0.9% 1000 ML* 1,000 ML IV SCH (12:30)
[2017-05-02] MEDS: Digoxin TAB* 0.125 MG PO SCH (16:58)
[2017-05-02] MEDS ORDERED: Warfarin TAB(*) 2 MG PO ONE (17:00)
[2017-05-02] MEDS: Atorvastatin* 40 MG TAB PO SCH (21:29)
[2017-05-03] MEDS: Acetaminophen TAB* 325 MG PO PRN ×3 (03:40→14:41)
[2017-05-03 05:51] LABS: INR 3.86 (0.77-1.02)
[2017-05-03] MEDS: Levothyroxine TAB* 100 MCG TAB PO SCH (06:30)
[2017-05-03 07:38] LABS: Hematocrit 31 % (35-47); Hemoglobin 10.6 g/dl (12.0-16.0); Mean Corpuscular HGB Conc 34 g/dl (31-36); Mean Corpuscular Hemoglobin 34 pg (27-31); Mean Corpuscular Volume 97 fL (80-97); Mean Platelet Volume 8.8 um3 (7.4-10.4); Platelet Count 186 10^3/ul (150-450); Red Blood Count 3.17 10^6/ul (4.0-5.4); Red Cell Distribution Width 14 % (10.5-15); White Blood Count 8.6 10^3/ul (3.5-10.8)
[2017-05-03] MEDS: Losartan TAB* 25 MG PO SCH (08:05)
[2017-05-03] MEDS: Magnesium Oxide TAB* 400 MG PO SCH (08:05)
[2017-05-03] MEDS: Baclofen TAB* 10 MG PO SCH ×2 (08:06→14:04)
[2017-05-03] MEDS: Amiodarone TAB* 200 MG PO SCH (08:06)
[2017-05-03] MEDS: Diltiazem CD CAP* 120 MG PO SCH (08:06)
[2017-05-03] MEDS: oxyCODONE/Acetamin 5/325 MG* TAB PO PRN (11:22)
--- NOTE | 2017-05-03 11:56 | PN ---
Progress Note - Progress Note Date of Service: 05/03/17 SOAP: Subjective: []Patient seen at bedside with her son present. RUE is nonpainful and she has no numbness of RUE Objective: []General: Well appearing, NAD. Doing a crossword puzzle with her right hand. RUE: Coaptation splint and sling in place. No skin breakdown or irritation noted. Flexion and extension of wrist intact. Flexion, extension, abduction and adduction of all 5 digits intact. Able to produce a thumbs up, finger to thumb opposition intact. Sensation intact to light touch throughout the right hand including all digits. 2+ radial pulse, capillary refill less than five seconds distally. Assessment: []81 yo F s/p fall with comminuted displaced R humeral shaft fx Plan: []Nonweightbearing THOMAS Has FU in office with Dr Henry 05/09 for splint change Beckett brace once callus has formed. Vital Signs Temp 97.8 F 05/03/17 10:54 Pulse 64 05/03/17 10:54 Resp 16 05/03/17 11:22 BP 108/48 05/03/17 10:54 Pulse Ox 98 05/03/17 10:54 Intake & Output 05/02/17 05/03/17 05/03/17 18:59 06:59 18:59 Intake Total 1200 1000 200 Output Total 1100 450 300 Balance 100 550 -100 Intake: IV Fluids 1000 NS (0.9%) 1000 Oral 1200 0 200 Output: Urine 1100 450 300 Other: Estimated Void Medium Small # Bowel Movements 0 Estimated Stool Amount Small # Voids 2 Laboratory Last Values WBC 8.6 10^3/ul (3.5-10.8) 05/03/17 05:07 RBC 3.17 10^6/ul (4.0-5.4) L 05/03/17 05:07 Hgb 10.6 g/dl (12.0-16.0) L 05/03/17 05:07 Hct 31 % (35-47) L 05/03/17 05:07 MCV 97 fL (80-97) 05/03/17 05:07 MCH 34 pg (27-31) H 05/03/17 05:07 MCHC 34 g/dl (31-36) 05/03/17 05:07 RDW 14 % (10.5-15) 05/03/17 05:07 Plt Count 186 10^3/ul (150-450) 05/03/17 05:07 MPV 8.8 um3 (7.4-10.4) 05/03/17 05:07 Neut % (Auto) 61.8 % (38-83) 05/02/17 02:10 Lymph % (Auto) 30.4 % (25-47) 05/02/17 02:10 Major % (Auto) 7.0 % (0-7) 05/02/17 02:10 Eos % (Auto) 0.2 % (0-6) 05/02/17 02:10 Baso % (Auto) 0.6 % (0-2) 05/02/17 02:10 Absolute Neuts (auto) 8.4 10^3/ul (1.5-7.7) H 05/02/17 02:10 Absolute Lymphs (auto) 4.1 10^3/ul (1.0-4.8) 05/02/17 02:10 Absolute Monos (auto) 1.0 10^3/ul (0-0.8) H 05/02/17 02:10 Absolute Eos (auto) 0 10^3/ul (0-0.6) 05/02/17 02:10 Absolute Basos (auto) 0.1 10^3/ul (0-0.2) 05/02/17 02:10 Absolute Nucleated RBC 0 10^3/ul 05/02/17 02:10 Nucleated RBC % 0.1 05/02/17 02:10 INR (Anticoag Therapy) 3.86 (0.77-1.02) H 05/03/17 05:07 Sodium 134 mmol/L (133-145) 05/02/17 02:10 Potassium 4.0 mmol/L (3.5-5.0) 05/02/17 02:10 Chloride 102 mmol/L (101-111) 05/02/17 02:10 Carbon Dioxide 22 mmol/L (22-32) 05/02/17 02:10 Anion Gap 10 mmol/L (2-11) 05/02/17 02:10 BUN 16 mg/dL (6-24) 05/02/17 02:10 Creatinine 0.75 mg/dL (0.51-0.95) 05/02/17 02:10 Est GFR ( Amer) 95.6 (>60) 05/02/17 02:10 Est GFR (Non-Af Amer) 74.4 (>60) 05/02/17 02:10 BUN/Creatinine Ratio 21.3 (8-20) H 05/02/17 02:10 Glucose 169 mg/dL (70-100) H 05/02/17 02:10 POC Glucose (mg/dL) 161 mg/dL (70-100) H 05/02/17 01:40 Lactic Acid 1.5 mmol/L (0.5-2.0) 04/30/17 20:30 Calcium 8.9 mg/dL (8.6-10.3) 05/02/17 02:10 Magnesium 2.2 mg/dL (1.9-2.7) 04/30/17 20:30 Total Bilirubin 0.60 mg/dL (0.2-1.0) 04/30/17 20:30 AST 61 U/L (13-39) H 04/30/17 20:30 ALT 49 U/L (7-52) 04/30/17 20:30 Alkaline Phosphatase 97 U/L (34-104) 04/30/17 20:30 Troponin I 0.00 ng/mL (<0.04) 05/02/17 02:10 Total Protein 6.9 g/dL (6.4-8.9) 04/30/17 20:30 Albumin 4.0 g/dL (3.2-5.2) 04/30/17 20:30 Globulin 2.9 g/dL (2-4) 04/30/17 20:30 Albumin/Globulin Ratio 1.4 (1-3) 04/30/17 20:30 TSH 3.01 mcIU/mL (0.34-5.60) 04/30/17 20:30 Urine Color Yellow 04/30/17 19: Urine Appearance Clear 04/30/17 19: Urine pH 7.0 (5-9) 04/30/17 19: Ur Specific [place] 1.009 (1.010-1.030) L 04/30/17 19:26 Urine Protein Negative (Negative) 04/30/17 19: Urine Ketones Negative (Negative) 04/30/17 19: Urine Blood Negative (Negative) 04/30/17 19: Urine Nitrate Negative (Negative) 04/30/17 19: Urine Bilirubin Negative (Negative) 04/30/17 19: Urine Urobilinogen Negative (Negative) 04/30/17 19: Ur Leukocyte Esterase Negative (Negative) 04/30/17 19: Urine Glucose Negative (Negative) 04/30/17 19: Urine Ascorbic Acid * (Negative) A 04/30/17 19: Digoxin 1.0 ng/ml (0.8-2.0) 04/30/17 20:30
--- NOTE | 2017-05-03 15:13 | DS ---
CC: Teresa Appiah MD; Jo Leon MD; Lori Chavarria MD; Angela Henry MD * DISCHARGE SUMMARY DATE OF ADMISSION: 04/30/17 DATE OF DISCHARGE: 05/03/17 ADMITTING PROVIDER: Teresa Appiah MD PRIMARY CARE PHYSICIAN: Jo Leon MD OUTPATIENT ENGINE SERVICE REPAIRER: Lori Chavarria MD ATTENDING PHYSICIAN: Dave Hernandez MD CHIEF COMPLAINT: Fall and right arm pain. PRINCIPAL DIAGNOSIS: Right humerus comminuted fracture in the setting of syncope, most likely vasovagal complicated by orthostatic hypotension. HISTORY OF PRESENT ILLNESS/HOSPITAL COURSE: Elizabeth Drummond is an 81-year-old female with past medical history of CVA with residual left-sided leg weakness, atrial fibrillation on amiodarone, digoxin and Coumadin, hypertension, hypothyroidism, status post pacemaker placement, history of vasovagal syncope who presents with fall. She was unclear if she lost consciousness. She got up a little bit more quickly than usual. Her right arm hit the side of her bed. There was some concern that she had doubled up on some of her medications including likely her digoxin, but only for one day. This was in the setting of her partner/primary neurocritical care physician (Ankita) being herself at a [facility]. On presentation to [facility] she was found to have a right humerus comminuted fracture which was evaluated by Dr. Henry of orthopedics and managed nonoperatively with sling and splints. She had her pacemaker checked and no settings were changed. There were no episodes recorded during the time of syncope which happened around 5 p.m. day of admission. She was found to be orthostatic, she was given IV fluids. She had additional syncopal event the night of 05/01/17. This happened after she was returning and just stood up after using the restroom. She did attest to loss of consciousness at that time. There was no telemetry abnormalities recorded during this event other than a small segment of noise lasting a few seconds. She had negative troponins during the stay. She had a CT of the brain on admission which showed cortical atrophy with chronic microvascular ischemic changes with no acute findings. She had a transthoracic echocardiogram on 04/30/17 which demonstrated E to A reversals suggestive of diastolic dysfunction and preserved ejection fraction of 55% to 60%. There was trace tricuspid regurgitation, mild mitral regurgitation, mild aortic regurgitation and there was increased basal septal hypertrophy without evidence of increased gradient across the left ventricular outflow tract. She worked with physical therapy and occupational therapy, and they are recommending continuing treatment given her baseline use of a cane, given her left-sided CVA associated weakness and now dominant hand is being nonweightbearing in the setting of complicated right humerus fracture. She is being discharged to [facility] for continued physical therapy. Her orthostatics were checked again on the day of discharge and had improved - she was not orthostatic day of discharge. She is recommended to have her losartan stopped (it was 50 mg) given blood pressures between 108 and 120s on day of discharge. She did have a reduction of her warfarin on discharge to 1 mg daily to be started on 05/04, Sunday, given elevated INR both on admission at 3.4 and then again on day of discharge, when it had increased from 2.7 to 3.86 in the space of 24 hours, this was in the setting of getting 2 mg on 05/01 and 2 mg on 05/02, had been held on admission. DISCHARGE MEDICATIONS: Include: 1. Amiodarone 200 mg p.o. daily. 2. Ascorbic acid 1000 mg p.o. daily. 3. Atorvastatin 40 mg p.o. daily. 4. Baclofen 5 mg b.i.d. and 10 mg daily. 5. Cholecalciferol 2000 units p.o. daily. 6. Digoxin 0.125 mg p.o. daily. 7. Diltiazem 120 mg p.o. daily. 8. Docusate 100 mg p.o. b.i.d. (new). 9. Glucosamine chondroitin capsule p.o. daily. 10. Synthroid 100 micrograms p.o. daily. 11. Magnesium complex 600 mg p.o. b.i.d. 12. Percocet 5/325 mg of oxycodone/acetaminophen 1 tab p.o. every 4 hours p.r.n.. 13. Senna 1 tab p.o. b.i.d. p.r.n. 14. Warfarin 1 mg p.o. daily to start on 05/04/17 (reduction from previous 2 mg daily). DIET: No restrictions. ACTIVITY LEVEL: Nonweightbearing to the right upper extremity. FOLLOWUP: 1. Dr. Jo Cummings within 3-5 days of discharge from [facility]. 2. Dr. Angela Henry, Orthopedics, on 05/09/17. Patient planned to have a Beckett brace once callus has formed. She is using a 4- based cane with ambulation. She is to have an INR checked within 3 days of discharge. TIME TO PREPARE DISCHARGE: 35 minutes. [id number]/[facility] #: [id number] MTDD
[2017-05-03 15:58] VITALS: BP 124/56
[2017-05-03] MEDS ORDERED: Warfarin TAB(*) 1 MG PO ONE (17:00)
== END 2017-05-03 15:51 | DRG 312 ==
LOC: ED 18:02 → MEDTELE 21:52
PROVIDERS: ADMIT Pediatrics; ATTEND Internal Medicine
PROC: 2W3EX1Z Immobilization of Right Hand using Splint (ICD-10-PCS; principal; 2017-04-30)
PROC: 4B02XSZ Measurement of Cardiac Pacemaker, External Approach (ICD-10-PCS; 2017-05-01)
DX: I95.1 Orthostatic hypotension (principal); I48.91 Unspecified atrial fibrillation; I08.3 Combined rheumatic disorders of mitral, aortic and tricuspid valves; S42.351A Displaced comminuted fracture of shaft of humerus, right arm, initial encounter for closed fracture; W19.XXXA Unspecified fall, initial encounter; E03.9 Hypothyroidism, unspecified; I10 Essential (primary) hypertension; R79.1 Abnormal coagulation profile; E78.5 Hyperlipidemia, unspecified; M25.531 Pain in right wrist; D64.9 Anemia, unspecified; Z95.0 Presence of cardiac pacemaker; Z88.2 Allergy status to sulfonamides; I69.354 Hemiplegia and hemiparesis following cerebral infarction affecting left non-dominant side; Z87.440 Personal history of urinary (tract) infections; Z79.01 Long term (current) use of anticoagulants; Z88.8 Allergy status to other drugs, medicaments and biological substances; Z82.49 Family history of ischemic heart disease and other diseases of the circulatory system; Z80.1 Family history of malignant neoplasm of trachea, bronchus and lung; Y92.009 Unspecified place in unspecified non-institutional (private) residence as the place of occurrence of the external cause
CPT/HCPCS: 36415; 70450; 71045; 72125; 80048; 80053; 80162; 81003; 83605; 83735; 84443; 84484; 85025; 85027; 85610; 93005; 93306; 99284; A9270-GY; G8978-GP-CJ; G8979-GP-CI; G8987-GO-CK; G8988-GO-CI; J2270; J2405

== ENCOUNTER 2017-05-05 11:01 | Inpatient (IN) | payer MEDICARE, OTHER ==
--- NOTE | 2017-05-05 11:46 | RAD ---
HISTORY: Syncope COMPARISONS: April 30, 2012 TECHNIQUE: Multiple contiguous axial CT scans were obtained of the head without intravenous contrast. FINDINGS: HEMORRHAGE/INFARCT: There is no hemorrhage or acute infarct. MASSES/SHIFT: There is no mass or shift. EXTRA-AXIAL SPACES: There are no extra-axial fluid collections. SULCI AND VENTRICLES: There is diffuse and proportional enlargement of the sulci and ventricles. CEREBRUM: There are no focal parenchymal abnormalities. BRAINSTEM: There are no focal parenchymal abnormalities. CEREBELLUM: There are no focal parenchymal abnormalities. VESSELS: The vessels are grossly normal. PARANASAL SINUSES: The paranasal sinuses are clear. ORBITS: The orbits are unremarkable. BONES AND SOFT TISSUE: No bone or soft tissue abnormalities are noted. OTHER: None IMPRESSION: NO ACUTE INTRACRANIAL PATHOLOGY. CHRONIC SMALL VESSEL ISCHEMIC CHANGE
--- NOTE | 2017-05-05 12:04 | RAD ---
HISTORY: Syncope COMPARISONS: April 30, 2017 VIEWS: 4: Frontal dual-energy and lateral views of the chest. FINDINGS: CARDIOMEDIASTINAL SILHOUETTE: The cardiomediastinal silhouette is normal. CROW: The crow are normal. PLEURA: The costophrenic angles are sharp. No pleural abnormalities are noted. LUNG PARENCHYMA: The lungs are clear. ABDOMEN: The upper abdomen is clear. There is no subphrenic gas. BONES AND SOFT TISSUES: Again noted is a comminuted fracture of the right humerus OTHER: A left-sided pacemaker is noted. IMPRESSION: NO ACTIVE CARDIOPULMONARY DISEASE.
[2017-05-05 12:07] LABS: ABS Basophils 0 10^3/ul (0-0.2); ABS Eosinophils 0 10^3/ul (0-0.6); ABS Lymphocytes 1.2 10^3/ul (1.0-4.8); ABS Monocytes 0.3 10^3/ul (0-0.8); ABS Neutrophils 6.5 10^3/ul (1.5-7.7); ABS Nucleated RBC 0 10^3/ul; Eosinophil % 0.1 % (0-6); Hematocrit 33 % (35-47); Hemoglobin 11.2 g/dl (12.0-16.0); Lymphocyte % 14.5 % (25-47); Mean Corpuscular HGB Conc 34 g/dl (31-36); Mean Corpuscular Hemoglobin 33 pg (27-31); Mean Corpuscular Volume 96 fL (80-97); Mean Platelet Volume 8.3 um3 (7.4-10.4); Nucleated Red Blood Cells % 0; Platelet Count 239 10^3/ul (150-450); Red Blood Count 3.45 10^6/ul (4.0-5.4); Red Cell Distribution Width 14 % (10.5-15); White Blood Count 8.1 10^3/ul (3.5-10.8)
[2017-05-05 12:22] LABS: INR 2.4 (0.77-1.02)
[2017-05-05 12:23] LABS: EGFR Non-African American 98.1 (>60)
[2017-05-05] MEDS ORDERED: NS 0.9% 1000 ML* 1,000 ML IV ONE (12:29)
[2017-05-05 12:57] LABS: Urine Appearance Clear; Urine Blood Negative (Negative); Urine Color Yellow; Urine Ketones Negative (Negative); Urine Protein Negative (Negative); Urine Specific Gravity 1.014 (1.010-1.030); Urine Urobilinogen Negative (Negative)
[2017-05-05] MEDS ORDERED: oxyCODONE/Acetamin 5/325 MG* TAB PO PRN (13:38)
[2017-05-05] MEDS ORDERED: Magnesium Sulfate 1 GM IV* 1 GM/100 ML BAG IV ONE (14:04)
[2017-05-05] MEDS ORDERED: Potassium Chlor TAB* 20 MEQ TAB.ER PO ONE (14:05)
--- NOTE | 2017-05-05 14:12 | ED ---
Marina Green Elizabeth, scribed for Dick Lindsey on 05/05/17 at 1129 . Dizziness - HPI Summary HPI Summary: The patient is an 81 year old female presenting to the emergency department of an episode of dizziness that occurred this morning. Patient believes that she lost consciousness and notes emesis during the time she lost consciousness. The patient denies shortness of breath, chest pain, or fever. Patient was admitted 5 days ago after an injury to her right arm. Patient had a stroke 2.5 years ago. Patient has a pacer. She lives at [facility]. - History Of Current Complaint Chief Complaint: EDDizziness Stated Complaint: DIZZINESS Time Seen by Provider: 05/05/17 11:09 Hx Obtained From: Patient Onset/Duration: Suddenly Aggravating Factor(s): Nothing Associated Signs And Symptoms: Positive: Vomiting. Negative: Chest Pain, SOB, Fever - Allergies/Home Medications Allergies/Adverse Reactions: Allergies Allergy/AdvReac Type Severity Reaction Status Date / Time Sulfa (Sulfonamide Allergy Unknown Verified 04/30/17 21:59 Antibiotics) Reaction Details sulfamethoxazole Allergy Unknown Verified 04/30/17 21:59 [From Bactrim] Reaction Details trimethoprim [From Bactrim] Allergy Unknown Verified 04/30/17 21:59 Reaction Details PMH/Surg Hx/FS Hx/Imm Hx Endocrine/Hematology History: Reports: Hx Thyroid Disease, Hx Anemia Denies: Hx Diabetes Cardiovascular History: Reports: Hx Atrial Fibrillation, Hx Hypercholesterolemia , Hx Hypertension, Hx Pacemaker/ICD - PUT IN 02/09/2015, Other Cardiovascular Problems/Disorders - a fib Denies: Hx Congestive Heart Failure History: Denies: Hx Renal Disease Musculoskeletal History: Reports: Hx Arthritis - LEFT KNEE, Other Musculoskeletal History - BROKE LEFT FEMUR Comment Only: 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 SQAMOUS CELL CA, LT ANKLE. TONSILECTOMY Hx Anesthesia Reactions: No Infectious Disease History: No Infectious Disease History: Denies: Traveled Outside the [place] in Last 30 Days - Family History Known Family History: Positive: None - Social History Alcohol Use: None Alcohol Amount: 3-4 per week Hx Substance Use: No Substance Use Type: Reports: None Hx Tobacco Use: Yes Smoking Status (MU): Former Smoker Have You Smoked in the Last Year: No Review of Systems Negative: Fever Negative: Chest Pain Negative: Shortness Of Breath Positive: Vomiting Neurological: Other - Dizziness All Other Systems Reviewed And Are Negative: Yes Physical Exam - Summary Physical Exam Summary: Appearance: Well appearing, no pain distress Skin: warm, dry, reflects adequate perfusion Head/face: normal Eyes: EOMI, KAYDEN ENT: normal Neck: supple, non-tender Respiratory: CTA, breath sounds present Cardiovascular: RRR, pulses symmetrical Abdomen: non-tender, soft Bowel: present Musculoskeletal: normal, strength/ROM intact. Patient has a sling on her right shoulder. Neuro: normal, sensory motor intact, A&Ox3 Triage Information Reviewed: Yes Vital Signs On Initial Exam: Initial Vitals Temp Pulse Resp BP Pulse Ox 97.0 F 64 18 122/54 93 05/05/17 11:08 05/05/17 11:08 05/05/17 11:08 05/05/17 11:08 05/05/17 11:08 Vital Signs Reviewed: Yes Diagnostics - Vital Signs Vital Signs Temp Pulse Resp BP Pulse Ox 05/05/17 11:08 97.0 F 64 18 122/54 93 - Laboratory Lab Results: Lab Results 05/05/17 05/05/17 05/05/17 Range/Units 11:58 11:58 11:58 WBC 8.1 (3.5-10.8) 10^3/ul RBC 3.45 L (4.0-5.4) 10^6/ul Hgb 11.2 L (12.0-16.0) g/dl Hct 33 L (35-47) % MCV 96 (80-97) fL MCH 33 H (27-31) pg MCHC 34 (31-36) g/dl RDW 14 (10.5-15) % Plt Count 239 (150-450) 10^3/ul MPV 8.3 (7.4-10.4) um3 Neut % (Auto) 80.7 (38-83) % Lymph % (Auto) 14.5 L (25-47) % Socorro % (Auto) 4.1 (0-7) % Eos % (Auto) 0.1 (0-6) % Baso % (Auto) 0.6 (0-2) % Absolute Neuts (auto) 6.5 (1.5-7.7) 10^3/ul Absolute Lymphs (auto) 1.2 (1.0-4.8) 10^3/ul Absolute Monos (auto) 0.3 (0-0.8) 10^3/ul Absolute Eos (auto) 0 (0-0.6) 10^3/ul Absolute Basos (auto) 0 (0-0.2) 10^3/ul Absolute Nucleated RBC 0 10^3/ul Nucleated RBC % 0 INR (Anticoag Therapy) 2.40 H (0.77-1.02) APTT 38.9 H (26.0-36.3) seconds Sodium (133-145) mmol/L Potassium (3.5-5.0) mmol/L Chloride (101-111) mmol/L Carbon Dioxide (22-32) mmol/L Anion Gap (2-11) mmol/L BUN (6-24) mg/dL Creatinine (0.51-0.95) mg/dL Est GFR ( Amer) (>60) Est GFR (Non-Af Amer) (>60) BUN/Creatinine Ratio (8-20) Glucose (70-100) mg/dL Lactic Acid (0.5-2.0) mmol/L Calcium (8.6-10.3) mg/dL Magnesium (1.9-2.7) mg/dL Total Bilirubin (0.2-1.0) mg/dL AST (13-39) U/L ALT (7-52) U/L Alkaline Phosphatase (34-104) U/L Troponin I (<0.04) ng/mL B-Natriuretic Peptide 76 ( - 100) pg/mL Total Protein (6.4-8.9) g/dL Albumin (3.2-5.2) g/dL Globulin (2-4) g/dL Albumin/Globulin Ratio (1-3) TSH (0.34-5.60) mcIU/mL Urine Color Urine Appearance Urine pH (5-9) Ur Specific Eunice (1.010-1.030) Urine Protein (Negative) Urine Ketones (Negative) Urine Blood (Negative) Urine Nitrate (Negative) Urine Bilirubin (Negative) Urine Urobilinogen (Negative) Ur Leukocyte Esterase (Negative) Urine Glucose (Negative) Urine Ascorbic Acid (Negative) 05/05/17 05/05/17 05/05/17 Range/Units 11:58 11:58 12:47 WBC (3.5-10.8) 10^3/ul RBC (4.0-5.4) 10^6/ul Hgb (12.0-16.0) g/dl Hct (35-47) % MCV (80-97) fL MCH (27-31) pg MCHC (31-36) g/dl RDW (10.5-15) % Plt Count (150-450) 10^3/ul MPV (7.4-10.4) um3 Neut % (Auto) (38-83) % Lymph % (Auto) (25-47) % Socorro % (Auto) (0-7) % Eos % (Auto) (0-6) % Baso % (Auto) (0-2) % Absolute Neuts (auto) (1.5-7.7) 10^3/ul Absolute Lymphs (auto) (1.0-4.8) 10^3/ul Absolute Monos (auto) (0-0.8) 10^3/ul Absolute Eos (auto) (0-0.6) 10^3/ul Absolute Basos (auto) (0-0.2) 10^3/ul Absolute Nucleated RBC 10^3/ul Nucleated RBC % INR (Anticoag Therapy) (0.77-1.02) APTT (26.0-36.3) seconds Sodium 134 (133-145) mmol/L Potassium 3.9 (3.5-5.0) mmol/L Chloride 101 (101-111) mmol/L Carbon Dioxide 25 (22-32) mmol/L Anion Gap 8 (2-11) mmol/L BUN 16 (6-24) mg/dL Creatinine 0.59 (0.51-0.95) mg/dL Est GFR ( Amer) 126.1 (>60) Est GFR (Non-Af Amer) 98.1 (>60) BUN/Creatinine Ratio 27.1 H (8-20) Glucose 155 H (70-100) mg/dL Lactic Acid 1.7 (0.5-2.0) mmol/L Calcium 8.7 (8.6-10.3) mg/dL Magnesium 1.9 (1.9-2.7) mg/dL Total Bilirubin 0.60 (0.2-1.0) mg/dL AST 51 H (13-39) U/L ALT 42 (7-52) U/L Alkaline Phosphatase 95 (34-104) U/L Troponin I 0.00 (<0.04) ng/mL B-Natriuretic Peptide ( - 100) pg/mL Total Protein 6.2 L (6.4-8.9) g/dL Albumin 3.3 (3.2-5.2) g/dL Globulin 2.9 (2-4) g/dL Albumin/Globulin Ratio 1.1 (1-3) TSH 5.39 (0.34-5.60) mcIU/mL Urine Color Yellow Urine Appearance Clear Urine pH 6.0 (5-9) Ur Specific Eunice 1.014 (1.010-1.030) Urine Protein Negative (Negative) Urine Ketones Negative (Negative) Urine Blood Negative (Negative) Urine Nitrate Negative (Negative) Urine Bilirubin Negative (Negative) Urine Urobilinogen Negative (Negative) Ur Leukocyte Esterase Negative (Negative) Urine Glucose Negative (Negative) Urine Ascorbic Acid * A (Negative) Result Diagrams: 05/05/17 11:58 05/05/17 11:58 Lab Statement: Any lab studies that have been ordered have been reviewed, and results considered in the medical decision making process. - Radiology CXR Xray Interpretation: No Acute Changes - IMPRESSION: NO ACTIVE CARDIOPULMONARY DISEASE. Dr. Lindsey has reviewed this report. Radiology Interpretation Completed By: Radiologist - CT CT Brain CT Interpretation: Positive (See Comments) - IMPRESSION: NO ACUTE INTRACRANIAL PATHOLOGY. CHRONIC SMALL VESSEL ISCHEMIC CHANGE. Dr. Lindsey has reviewed this report. CT Interpretation Completed By: Radiologist - EKG 11:27 Cardiac Rate: Other Rate - 62 BPM, paced rhythm Dizzy Course/Dx - Course Course Of Treatment: The patient is an 81 year old female presenting to the emergency department of an episode of dizziness and emesis that occurred this morning. An EKG reveals a paced rhythm at 62 BPM. CXR reveals, per radiologist , no active cardiopulmonary disease. CT Brain reveals, per radiologist, no acute intracranial pathology, chronic small vessel ischemic change. ED physician has reviewed this radiology report. Bloodwork and UA obtained. We discussed patient care with Dr. Cash, hospitalist, and they recommended admitting the patient. Patient will be admitted with a diagnosis of orthostatic hypotension. The patient is agreeable with this plan. - Diagnoses Differential Diagnosis/HQI/PQRI: CVA, Dysrhythmia, Hypovolemia, Transient Ischemic Attack, Vasovagal Reaction, Other - orthostatic hypotension/syncope Provider Diagnoses: Orthostatic hypotension - Provider Notifications Discussed Care Of Patient With: Hannah Cash Instructed by Provider To: Admit As Inpatient Discharge - Sign-Out/Discharge Documenting (check all that apply): Discharge - Discharge Plan Condition: Stable Disposition: ADMITTED TO [facility] Referrals: Jo Leon MD [Primary Care Provider] - - Billing Disposition and Condition Condition: STABLE [place] [facility] The documentation as recorded by the Marina fallon Elizabeth accurately reflects the service I personally performed and the decisions made by César fonseca Emmanuel.
[2017-05-05] MEDS: Senna TAB PO PRN (15:56)
[2017-05-05] MEDS: Fludrocortisone Acetate TAB* 0.1 MG PO SCH (15:56)
[2017-05-05] MEDS: Docusate CAP* 100 MG PO PRN (15:56)
[2017-05-05] MEDS ORDERED: Digoxin TAB* 0.125 MG PO SCH (17:00)
[2017-05-05] MEDS ORDERED: Warfarin TAB(*) 1 MG PO SCH (17:00)
[2017-05-05] MEDS: Atorvastatin* 40 MG TAB PO SCH (17:27)
[2017-05-05] MEDS: Magnesium Oxide TAB* 400 MG PO SCH ×2 (18:07→20:57)
[2017-05-05] MEDS: Acetaminophen TAB* 325 MG PO PRN (18:07)
[2017-05-05] MEDS: Baclofen TAB* 10 MG PO SCH (20:56)
--- NOTE | 2017-05-05 21:38 | HP ---
HISTORY AND PHYSICAL: DATE OF ADMISSION: 05/05/17 ADMITTING PROVIDER: Dave Hernandez MD PRIMARY CARE PHYSICIAN: Jo Leon MD CHIEF COMPLAINT: Syncope. HISTORY OF PRESENT ILLNESS: Elizabeth Drummond is an 81-year-old female with past medical history of CVA with a residual left-sided weakness; atrial fibrillation( on amiodarone, digoxin, and Coumadin); tachy-francesco syndrome, status post permanent pacemaker placement; vasovagal syncope and orthostatic hypotension with recent admission for syncope between 04/30/17 and 05/03/17, which was complicated by right humerus comminuted fracture(also had syncopal event 3/20 PM after urinating). The patient's PPM had been interrogated with no changes made. The patient's orthostasis had improved morning of discharge and she had been discharged for further rehabilitation to [facility]. The day prior to admission, she got up out of bed twice and felt dizzy with some diaphoresis and physical therapy did not feel like she looked well enough to try physical therapy that day. On morning of admission, she got up out of bed with 2 aides by her side and guide belt around her. She urinated, stood up and does not have clear recollection of what happened next, but was later told that she had become unresponsive and then vomited, this was approximately 3 to 4 yards away from the toilet area. She represented to [facility] Emergency Room, was found to be orthostatic with blood pressures 122/55 sitting with heart rate 71; decreased to 86/45 while standing and heart rate 53; lying had been 107/46, heart rate is 60. She got IV fluids and was presented to hospitalist service for admission for syncope and orthostatic hypotension (recurrent). She did have a CT of the head, which was negative. She denies any fevers or chills prior to the episode , but after getting IV fluids in the ED, she did feel chilly. Denies any palpitations, chest pain, shortness of breath. Has not had a bowel movement since presentation to [facility]. She does have some pain in her right humerus when it is palpated, but otherwise is without discomfort. PAST MEDICAL HISTORY: 1. Vasovagal syncope and orthostatic hypotension. 2. CVA with residual left-sided weakness at baseline, has been ambulating with a cane and most recently with a 4-base cane given the recent dominant hand is non-weightbearing status in the setting of right humerus comminuted fracture. 3. Atrial fibrillation, on Coumadin, amiodarone, and digoxin. 4. Hypothyroidism. 5. Right humerus comminuted fracture 04/30/17 6. Left humeral fracture in 2015. 7. Hypertension. 8. Tachy-francesco syndrome, status post pacemaker, follows with Dr. Lori Chavarria. MEDICATIONS: 1. Amiodarone 200 mg p.o. daily. 2. Ascorbic acid 1000 mg p.o. daily. 3. Atorvastatin 40 mg p.o. daily. 4. Baclofen 5 mg bid [0800, 1400] and 10 mg qhs. 5. Cholecalciferol 2000 units p.o. daily. 6. Digoxin 0.125 mg p.o. daily. 7. Diltiazem 120 mg p.o. daily at 1700 8. Docusate 100 mg p.o. b.i.d. 9. Glucosamine chondroitin capsule daily. 10. Synthroid 100 mcg p.o. daily. 11. Magnesium complex 600 mg p.o. b.i.d. 12. Percocet 1 tab p.o. every 4 hours. 13. Senna 1 tab p.o. b.i.d. p.r.n. 14. Warfarin 1 mg p.o. daily. (recently reduced from prior 2mg daily) Of note dad previously been on losartan 50 mg daily but that was stopped upon last discharge for SBP in 100-110s. ALLERGIES: SULFA (breathing troubles, angioedema). FAMILY HISTORY: Her mother of cardiac issues related to mitral valve and had a mitral valve repair, at age 74. Father of asbestosis and lung cancer, age 63. 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. Lives with her partner, Ankita White, who is her healthcare proxy and helps take care of her. She was a former smoker, last in high school. She had moderate alcohol use until 2-1/2 years ago when she got her pacemaker. She denies any other drug use. REVIEW OF SYSTEMS: A complete 14-point review of systems was negative except as per HPI. PHYSICAL EXAMINATION GENERAL APPEARANCE: No acute distress, lying in the hospital bed with right arm in sling. VITAL SIGNS: Blood pressure initially 122/54, temperature 97.0, heart rate 61, respiratory rate 18, satting 93% on room air. Orthostatic vital signs as per HPI. HEENT: Normocephalic, atraumatic. Pupils are equal, round, and reactive to light. Extraocular motions are intact. No scleral icterus. NECK: Supple. No cervical lymphadenopathy. RESPIRATORY: Clear to auscultation bilaterally with no wheezing, rales, or rhonchi. CARDIAC: Regular rate and rhythm. No murmurs, rubs, or gallops. ABDOMEN: Soft, nontender, nondistended. EXTREMITIES: Warm and well perfused. No peripheral edema. Right upper extremity in splint and sling. NEURO: Alert and oriented x3. Cranial nerves II through XII intact. Hip flexion and dorsi and plantar flexion 5/[address] [employer] strength 5/5 bilaterally. Sensation is intact. LABORATORY DATA: White count of 8.1, hemoglobin 11.2, hematocrit 33, platelets 239. INR 2.40. Sodium 134, potassium 3.9, chloride 101, carbon dioxide 25, BUN 16, creatinine 0.59, glucose 155, lactic acid 1.7, magnesium 1.9. AST 51, ALT 42, alk phos 95. Troponin 0.00. BNP 76. TSH 5.39. Urinalysis within normal limits. IMAGING: Chest x-ray demonstrates no active cardiopulmonary disease. CT of the brain, noncontrast demonstrated no acute intracranial pathology, chronic small vessel ischemic changes. EKG demonstrated T-wave inversions in V1 through V4, inferior Q-waves in II, III and aVF. These are old. QTc 533 ASSESSMENT AND PLAN: Elizabeth Drummond is an 81-year-old female presenting with recurrent syncope (twice of three episodes this week being now post micturition ) with a history of vasovagal and most recently orthostatic hypotension that had improved prior to discharge, but is recurrent here in the ED again. We will be admitting her to inpatient status as [facility] and likely will be here through until at least 05/07/17 for need for rehabilitation given her right humerus comminuted fracture. At this point, I am going to hold her diltiazem given her inadequate heart rate response with standing. Will need to monitor closely on tele given her Hx of Tachy-Francesco syndrome and Afib. Will continue her amiodarone and her digoxin for now, but consult Cardiology given her history of tachy-francesco and AFib with CCB cessation. She also has prolonged QTc and pace maker should be reinterrogated. No clear medication changes that would trigger. Repeat EKG tomorrow. She follows with Dr. Lori Chavarria as an outpatient. We will start Florinef 0.1 mg daily, titrate as needed with repeat orthostatic blood pressures in the morning. Continue physical therapy and occupational therapy while here. For her hypothyroidism, continue levothyroxine 100 mcg p.o. daily. For her right comminuted humerus fracture, we will continue her Percocet p.r.n. and tylenol prn along with the bowel regimen with senna and Colace. She did not have bowel movement over the last 2 days at [facility]. For her hyperlipidemia, continue atorvastatin 40 mg daily. We will monitor her on telemetry. Replete her electrolytes, potassium above 4, magnesium above 2. She is a little bit low here at 3.9 and 1.9 respectively. No evidence of urinary tract infection on UA. She is status post 1 L of bolus in the emergency room. She is a full code. She can eat heart-healthy diet. Her medical surrogate is her partner, Ankita White. [id number]/[facility] [place] #: [id number] [facility]
[2017-05-06] MEDS: Levothyroxine TAB* 100 MCG TAB PO SCH (06:09)
[2017-05-06] MEDS: Acetaminophen TAB* 325 MG PO PRN (06:12)
[2017-05-06 06:26] LABS: INR 2.11 (0.77-1.02)
[2017-05-06 07:58] LABS: ABS Basophils 0.1 10^3/ul (0-0.2); ABS Eosinophils 0 10^3/ul (0-0.6); ABS Lymphocytes 1.4 10^3/ul (1.0-4.8); ABS Monocytes 0.7 10^3/ul (0-0.8); ABS Neutrophils 9.2 10^3/ul (1.5-7.7); ABS Nucleated RBC 0 10^3/ul; Eosinophil % 0.2 % (0-6); Hematocrit 30 % (35-47); Hemoglobin 10.1 g/dl (12.0-16.0); Lymphocyte % 12.3 % (25-47); Mean Corpuscular HGB Conc 34 g/dl (31-36); Mean Corpuscular Hemoglobin 33 pg (27-31); Mean Corpuscular Volume 97 fL (80-97); Mean Platelet Volume 8.5 um3 (7.4-10.4); Nucleated Red Blood Cells % 0; Platelet Count 211 10^3/ul (150-450); Red Cell Distribution Width 14 % (10.5-15); White Blood Count 11.3 10^3/ul (3.5-10.8)
[2017-05-06 08:08] LABS: EGFR Non-African American 118.7 (>60)
[2017-05-06] MEDS ORDERED: Digoxin TAB* 0.125 MG PO SCH (09:00)
[2017-05-06] MEDS ORDERED: Baclofen TAB* 10 MG PO SCH (09:00)
[2017-05-06] MEDS ORDERED: Amiodarone TAB* 200 MG PO SCH (09:00)
[2017-05-06] MEDS: Senna TAB PO PRN (10:01)
[2017-05-06] MEDS: Ascorbic Acid TAB* 500 MG PO SCH (10:01)
[2017-05-06] MEDS: Docusate CAP* 100 MG PO PRN (10:01)
[2017-05-06] MEDS: Magnesium Oxide TAB* 400 MG PO SCH ×2 (10:01→21:06)
[2017-05-06] MEDS: Fludrocortisone Acetate TAB* 0.1 MG PO SCH (10:01)
[2017-05-06] MEDS: Cholecalciferol TAB* 1000 UNITS PO SCH (10:05)
[2017-05-06] MEDS: Baclofen TAB* 10 MG PO SCH ×3 (10:07→21:06)
[2017-05-06] MEDS ORDERED: Magnesium Hydroxide LIQ* 30 ML UDC PO ONE (11:42)
--- NOTE | 2017-05-06 11:49 | PN ---
Subjective Date of Service: 05/06/17 Interval History: Tmax 100.4 last night and 100.2 in AM. flu swabs obtained and negative. occasional nonproductive cough. right arm pain controlled with tylenol and 1 percoset. not orthostatic this AM. Denied dizziness but eventually did get tired and want to sit down. Afib on monitor around 830. no BM here yet. Objective Active Medications: Acetaminophen (Tylenol Tab*) 650 mg PO Q6H PRN PRN Reason: FEVER/PAIN Last Admin: 05/06/17 06:12 Dose: 650 mg Amiodarone HCl (Cordarone Tab*) 200 mg PO DAILY [facility] Last Admin: 05/06/17 10:02 Dose: 200 mg Ascorbic Acid (Vitamin C Tab*) 1,000 mg PO DAILY [facility] Last Admin: 05/06/17 10:01 Dose: 1,000 mg Atorvastatin Calcium (Lipitor*) 40 mg PO 1700 [facility] Last Admin: 05/05/17 17:27 Dose: 40 mg Baclofen (Lioresal Tab*) 5 mg PO 0900 [facility] Baclofen (Lioresal Tab*) 5 mg PO 1400 [facility] Baclofen (Lioresal Tab*) 10 mg PO 2100 [facility] Cholecalciferol (Vitamin D Tab*) 2,000 units PO DAILY [facility] Last Admin: 05/06/17 10:05 Dose: 2,000 units Digoxin (Lanoxin Tab*) 0.125 mg PO 1700 [facility] Last Admin: 05/05/17 18:07 Dose: 0.125 mg Docusate Sodium (Colace Cap*) 100 mg PO BID PRN PRN Reason: CONSTIPATION Last Admin: 05/06/17 10:01 Dose: 100 mg Fludrocortisone Acetate (Florinef Tab*) 0.1 mg PO DAILY [facility] Last Admin: 05/06/17 10:01 Dose: 0.1 mg Levothyroxine Sodium (Synthroid Tab*) 100 mcg PO 0600 [facility] Last Admin: 05/06/17 06:09 Dose: 100 mcg Magnesium Hydroxide (Milk Of Magnesia Liq*) 30 ml PO ONCE ONE Stop: 05/06/17 11:43 Magnesium Oxide (Magox 400 Tab*) 400 mg PO BID [facility] Last Admin: 05/06/17 10:01 Dose: 400 mg Oxycodone/Acetaminophen (Percocet 5/325 Tab*) 1 tab PO Q4H PRN PRN Reason: Pain Last Admin: 05/05/17 21:35 Dose: 1 tab Pharmacy Profile Note (Coumadin Daily Reminder*) 0 note FOLLOW UP 1700 [facility] Senna (Senokot Tab*) 1 tab PO BID PRN PRN Reason: CONSTIPATION Last Admin: 05/06/17 10:01 Dose: 1 tab Warfarin Sodium (Coumadin Tab(*)) 1.5 mg PO DAILY@1700 [facility] PRN Reason: Protocol Vital Signs - 8 hr 05/06/17 05/06/17 05/06/17 07:51 07:56 08:00 Temperature 100.2 F 100.2 F Pulse Rate 66 66 Respiratory 18 16 16 Rate Blood Pressure 127/52 (mmHg) O2 Sat by Pulse 95 95 Oximetry 05/06/17 05/06/17 10:35 10:38 Temperature 98.8 F Pulse Rate 60 Respiratory Rate Blood Pressure 138/35 (mmHg) O2 Sat by Pulse Oximetry Oxygen Devices in Use Now: None Appearance: NAD Eyes: No Scleral Icterus, PERRLA Ears/Nose/Mouth/Throat: Mucous Membranes Moist Respiratory: Symmetrical Chest Expansion and Respiratory Effort, Clear to Auscultation Cardiovascular: - - irregularly irregular, controlled rate. no m/r/g. Abdominal: NL Sounds; No Tenderness; No Distention, No Hepatosplenomegaly Extremities: No Edema Skin: No Rash or Ulcers Neurological: Alert and Oriented x 3, NL Sensation, NL Muscle Strength and Tone Nutrition: Taking PO's Result Diagrams: 05/06/17 05:40 05/06/17 05:40 Additional Lab and Data: Laboratory Results - last 24 hr 05/05/17 05/05/17 05/05/17 11:58 11:58 11:58 WBC 8.1 RBC 3.45 L Hgb 11.2 L Hct 33 L MCV 96 MCH 33 H MCHC 34 RDW 14 Plt Count 239 MPV 8.3 Neut % (Auto) 80.7 Lymph % (Auto) 14.5 L [place] % (Auto) 4.1 Eos % (Auto) 0.1 Baso % (Auto) 0.6 Absolute Neuts (auto) 6.5 Absolute Lymphs (auto) 1.2 Absolute Monos (auto) 0.3 Absolute Eos (auto) 0 Absolute Basos (auto) 0 Absolute Nucleated RBC 0 Nucleated RBC % 0 INR (Anticoag Therapy) 2.40 H APTT 38.9 H Sodium Potassium Chloride Carbon Dioxide Anion Gap BUN Creatinine Est GFR ( Amer) Est GFR (Non-Af Amer) BUN/Creatinine Ratio Glucose Lactic Acid Calcium Magnesium Total Bilirubin AST ALT Alkaline Phosphatase Troponin I B-Natriuretic Peptide 76 Total Protein Albumin Globulin Albumin/Globulin Ratio TSH Urine Color Urine Appearance Urine pH Ur Specific [place] Urine Protein Urine Ketones Urine Blood Urine Nitrate Urine Bilirubin Urine Urobilinogen Ur Leukocyte Esterase Urine Glucose Urine Ascorbic Acid Influenza A (Rapid) Influenza B (Rapid) 05/05/17 05/05/17 05/05/17 11:58 11:58 12:47 WBC RBC Hgb Hct MCV MCH MCHC RDW Plt Count MPV Neut % (Auto) Lymph % (Auto) [place] % (Auto) Eos % (Auto) Baso % (Auto) Absolute Neuts (auto) Absolute Lymphs (auto) Absolute Monos (auto) Absolute Eos (auto) Absolute Basos (auto) Absolute Nucleated RBC Nucleated RBC % INR (Anticoag Therapy) APTT Sodium 134 Potassium 3.9 Chloride 101 Carbon Dioxide 25 Anion Gap 8 BUN 16 Creatinine 0.59 Est GFR ( Amer) 126.1 Est GFR (Non-Af Amer) 98.1 BUN/Creatinine Ratio 27.1 H Glucose 155 H Lactic Acid 1.7 Calcium 8.7 Magnesium 1.9 Total Bilirubin 0.60 AST 51 H ALT 42 Alkaline Phosphatase 95 Troponin I 0.00 B-Natriuretic Peptide Total Protein 6.2 L Albumin 3.3 Globulin 2.9 Albumin/Globulin Ratio 1.1 TSH 5.39 Urine Color Yellow Urine Appearance Clear Urine pH 6.0 Ur Specific [place] 1.014 Urine Protein Negative Urine Ketones Negative Urine Blood Negative Urine Nitrate Negative Urine Bilirubin Negative Urine Urobilinogen Negative Ur Leukocyte Esterase Negative Urine Glucose Negative Urine Ascorbic Acid * A Influenza A (Rapid) Influenza B (Rapid) 05/05/17 05/06/17 05/06/17 14:54 05:40 05:40 WBC 11.3 H RBC 3.10 L Hgb 10.1 L Hct 30 L MCV 97 MCH 33 H MCHC 34 RDW 14 Plt Count 211 MPV 8.5 Neut % (Auto) 80.8 Lymph % (Auto) 12.3 L [place] % (Auto) 6.2 Eos % (Auto) 0.2 Baso % (Auto) 0.5 Absolute Neuts (auto) 9.2 H Absolute Lymphs (auto) 1.4 Absolute Monos (auto) 0.7 Absolute Eos (auto) 0 Absolute Basos (auto) 0.1 Absolute Nucleated RBC 0 Nucleated RBC % 0 INR (Anticoag Therapy) 2.11 H APTT Sodium Potassium Chloride Carbon Dioxide Anion Gap BUN Creatinine Est GFR ( Amer) Est GFR (Non-Af Amer) BUN/Creatinine Ratio Glucose Lactic Acid Calcium Magnesium Total Bilirubin AST ALT Alkaline Phosphatase Troponin I 0.00 B-Natriuretic Peptide Total Protein Albumin Globulin Albumin/Globulin Ratio TSH Urine Color Urine Appearance Urine pH Ur Specific [place] Urine Protein Urine Ketones Urine Blood Urine Nitrate Urine Bilirubin Urine Urobilinogen Ur Leukocyte Esterase Urine Glucose Urine Ascorbic Acid Influenza A (Rapid) Influenza B (Rapid) 05/06/17 05/06/17 05:40 08:16 WBC RBC Hgb Hct MCV MCH MCHC RDW Plt Count MPV Neut % (Auto) Lymph % (Auto) [place] % (Auto) Eos % (Auto) Baso % (Auto) Absolute Neuts (auto) Absolute Lymphs (auto) Absolute Monos (auto) Absolute Eos (auto) Absolute Basos (auto) Absolute Nucleated RBC Nucleated RBC % INR (Anticoag Therapy) APTT Sodium 135 Potassium 4.1 Chloride 103 Carbon Dioxide 28 Anion Gap 4 BUN 13 Creatinine 0.50 L Est GFR ( Amer) 152.7 Est GFR (Non-Af Amer) 118.7 BUN/Creatinine Ratio 26.0 H Glucose 96 Lactic Acid Calcium 8.2 L Magnesium 2.0 Total Bilirubin AST ALT Alkaline Phosphatase Troponin I B-Natriuretic Peptide Total Protein Albumin Globulin Albumin/Globulin Ratio TSH Urine Color Urine Appearance Urine pH Ur Specific [place] Urine Protein Urine Ketones Urine Blood Urine Nitrate Urine Bilirubin Urine Urobilinogen Ur Leukocyte Esterase Urine Glucose Urine Ascorbic Acid Influenza A (Rapid) Negative Influenza B (Rapid) Negative Microbiology and Other Data: Microbiology 05/06/17 08:15 Influenza Types A,B Antigen (LUÍS) - Final Nasal Specimen received for Influenza A/B Molecular testing 05/05/17 15:54 Nasal Screen MRSA (PCR)([facility]ÍS) - Final Nasal Mrsa Not Detected Assess/Plan/Problems-Billing Assessment: 81 yo female PMH afib (on coumadin, digoxin, amio and dilt(held here) and tachy- christopher s/p PPM, CVA w/ residual left leg weakness, hypothyroidism, HLD, HTN, vasovagal syncope and orthostatic hypotension, recent admission with syncope/rt humeral fracture p/w w/ another syncopal episode. orthostatics improving with florinef. - Patient Problems (1) Syncope Current Visit: No Status: Acute Code(s): R55 - SYNCOPE AND COLLAPSE SNOMED Code(s): 475862385 Comment: orthostatics improved after initiation of florinef and halting diltiazem. PT/OT plan back to [facility] for rehabilitation. (2) HTN (hypertension) Current Visit: No Status: Acute Code(s): I10 - ESSENTIAL (PRIMARY) HYPERTENSION SNOMED Code(s): 31367292 Comment: BP is under good control. Continue losartan 50mg daily. (3) Right humeral fracture Current Visit: No Status: Acute Code(s): S42.301A - UNSP FRACTURE OF SHAFT OF HUMERUS, RIGHT ARM, INIT SNOMED Code(s): 88750605 Comment: Dr. Henry outpatient followup on Tuesday 05/09 9am nonoperative management w/ sling and splint. PT ordered OT. uses cane and is right handed at baseline. may need MARCO ANTONIO. Continue prn pain control. (4) Afib Current Visit: No Status: Chronic Priority: High Code(s): I48.91 - UNSPECIFIED ATRIAL FIBRILLATION SNOMED Code(s): 80164680 Comment: Continue digoxin and amiodarone. Continue coumadin, to 1.5mg from 1mg. previous home was 2mg but was supratherapeutic and spiking higher on that dose. INR daily. her dilt 120 daily has been held given continued orthostatic syncope. Have asked cardiology to consult. s/p PPM. (5) CVA (cerebral infarction) Current Visit: No Status: Chronic Code(s): I63.9 - CEREBRAL INFARCTION, UNSPECIFIED SNOMED Code(s): 737050849 Comment: with some residual left leg weakness. (6) Hyperlipidemia LDL goal <100 Current Visit: No Status: Chronic Code(s): E78.5 - HYPERLIPIDEMIA, UNSPECIFIED SNOMED Code(s): 60778643 Comment: - Continue lipitor 40 mg daily. (7) Hypothyroidism Current Visit: No Status: Chronic Code(s): E03.9 - HYPOTHYROIDISM, UNSPECIFIED SNOMED Code(s): 98682490 Comment: - TSH is normal - Continue current dose of synthroid. (8) Anemia Current Visit: No Status: Acute Priority: Medium Onset Date: 09/27/14 Code(s): D64.9 - ANEMIA, UNSPECIFIED SNOMED Code(s): 195524916 Comment: hgb 10.1, normocytic. stable was iron deficient in 2014 and required transfusion. not currently on supplementation. (9) DVT prophylaxis Current Visit: No Status: Acute Priority: High Onset Date: 09/27/14 Code (s): PKC5554 - SNOMED Code(s): 454567433 Comment: on coumadin for AFib. INR 2.1 (10) Fever Current Visit: Yes Status: Acute Code(s): R50.9 - FEVER, UNSPECIFIED SNOMED Code(s): 994527356 Comment: influenza negative UA wnl did vomit with syncope. monitor for signs of aspiration pna. wbc up 11.3 from 8.1 cxr wnl on admission. Status and Disposition: medicine inpatient. Likely to [facility] 05/07
[2017-05-06] MEDS: Atorvastatin* 40 MG TAB PO SCH (16:52)
[2017-05-06] MEDS ORDERED: Digoxin TAB* 0.25 MG PO SCH (17:00)
[2017-05-06] MEDS ORDERED: Warfarin TAB(*) 1 MG PO SCH (17:00)
[2017-05-06] MEDS ORDERED: Digoxin IV* 0.5 MG/2 ML AMP (0.25 MG/ML) IV SLOW PU ONE (20:16)
--- NOTE | 2017-05-06 21:38 | CONS ---
CC: Dr. Chavarria * CARDIOLOGY CONSULTATION: DATE OF CONSULT: 05/06/17 REASON FOR EVALUATION: Syncope. HISTORY OF PRESENT ILLNESS: This is a very pleasant 81-year-old woman who has a history of sick sinus syndrome, paroxysmal atrial fibrillation with CVA in 2015 and implantation of a pacemaker. She is continued to have episodes of feeling vasovagal, sometimes associated with diaphoresis and nausea followed by syncopal episode with some incontinent bowel function. At other times, she is able to lie down and avoid a syncopal episode. She states these occur a couple times a year. Recently, her partner had severe injury. She was about to come home from rehab a week ago on Sunday when the patient got up from her recliner and found herself on the floor. She awoke with her arm hurting and went to the hospital and was found to have a fracture of the right arm. She went to [facility] for rehab and has been there. Her son accompanies her and suggested she may have doubled up on her amiodarone over the last few days, but he is not sure ; however, yesterday, she felt a need to go to the bathroom, went in to the bathroom with an aide, was sitting in the bathroom. A different aide came back to help her. At that time, she was feeling sweaty and poorly on the toilet. The aide helped her stand up and go to the bed. En route to the bed, she vomited and passed out for about a minute according to the son. Because of these symptoms, she was brought in to the hospital. She was found to have orthostatic hypotension. She denies chest pain. No fevers, chills, or sweats. No palpitation. She has been unaware of her episodes of atrial fibrillation in the past. PAST MEDICAL HISTORY: Includes vasovagal syncope and orthostatic hypotension in the past. CVA with left-sided weakness. She was able to walk in her house with a cane prior to her fall last week. She uses a cane outside the house, but has not been able to given the recent inability to use her right arm. She is chronically anticoagulated for AFib. She is on amiodarone and digoxin. Hypothyroidism. Left humeral fracture in 2014. Hypertension. Sick sinus syndrome, status post pacemaker implantation, followed by Dr. Chavarria. PAST SURGICAL HISTORY: Include pacemaker in 2015. MEDICATIONS: Her medications at outpatient include: 1. Amiodarone 200 mg a day. There were some questions whether she doubled up on her dose in the last few days. 2. Ascorbic acid 1000 mg a day. 3. Atorvastatin 40 mg a day. 4. Baclofen 5 mg b.i.d. and 10 mg a day. 5. Cholecalciferol 2000 units a day. 6. Digoxin 0.125 mg a day. 7. Diltiazem 120 mg a day. 8. Docusate 100 mg b.i.d. 9. Synthroid 1000 mcg a day. 10. Magnesium 600 mg b.i.d. 11. Percocet 1 tab q.4 hours p.r.n. 12. Warfarin. Losartan was discontinued after last hospitalization. Her medications as an inpatient include: 1. Amiodarone 200 mg a day. 2. Atorvastatin 40 mg a day. 3. Baclofen 5 mg twice during the day and 10 mg at night. 4. Vitamin D 2000 units a day. 5. Digoxin 0.125 mg a day. 6. Florinef 0.1 mg daily, started yesterday. 7. Colace 100 mg b.i.d. p.r.n. 8. Mag oxide 40 mg b.i.d. 9. Warfarin. 10. Senokot. ALLERGIES: Include SULFA and BACTRIM. SOCIAL HISTORY: She lives with a female partner, Ankita, who was recently injured. She has 3 children, 1 son who accompanies her. I believe she has 2 daughters. 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 FAMILY HISTORY: Her family includes mother who of cardiac related issues due to mitral valve and mitral valve repair, at 74. Father of asbestosis and lung cancer at 63. She states she has had no alcohol use in the last two and a half years. She said she denies smoking except when she was in college. REVIEW OF SYSTEMS: Negative except as above. PHYSICAL EXAMINATION: She is a well-developed, well-nourished female, no apparent distress, lying in bed with right arm in a sling. Blood pressure 130/ 58 lying down, 144/69 sitting and 138/35 standing. Her blood pressures yesterday around noon included orthostatic blood pressure changes. No significant JVD. Carotids 2+. No cervical adenopathy. No thyromegaly. Extraocular muscles intact. Sclerae anicteric. Pacemaker site dry and intact. Cardiac Exam: S1, S2. No murmurs, gallops, or rubs. Chest was clear. Abdominal Exam: Bowel sounds present, nontender. Femoral pulses intact without bruits. Distal pulses intact. No edema. Motor strength 5/5 bilaterally in the lower extremities and left upper extremity. Right upper extremity was not assessed. Deep tendon reflexes 2/4 in the lower extremities and left upper extremity. IMAGING: EKG from 05/05/17 at 11:27 revealed what appeared to be an atrial paced rhythm with possible old inferior [place], prolonged QT and diffuse nonspecific ST-T changes. EKG from 05/02/17 revealed atrial fibrillation and flutter with a rapid ventricular response, diffuse nonspecific ST-T changes, but a shorter QT. Her EKG from 04/30/17 revealed an atrial paced rhythm with inferior [place], poor R wave progression and QT of 471, QTc of 490. EKG from August 2015 revealed AV pacing and 09/30/14 revealed QT of 436, normal sinus rhythm with possible inferior [place] and inferolateral ST-T changes and QT of 436, QTc of 461. Echocardiogram from 04/30/17 revealed normal LV function, EF of 55% to 60 % with basal hypertrophy without evidence of increased gradient, mild AI, mild MR, no significant changes compared to August 2014. IMPRESSION: My impression is that Ms. Drummond had an episode of syncope and a history of tachybrady syndrome, sick sinus syndrome, vasovagal syncope, and hypertension. She has had orthostatic hypotension yesterday. She also has prolonged QT on her EKG from yesterday. Her son was concerned that she may have overdosed on her amiodarone. It is unclear whether combination of her medications has contributed to QT prolongation putting her at risk for torsades versus recurrent vasovagal. In any event, with stopping her diltiazem and starting Florinef, it seems like her orthostatic changes have improved. I did explain to her over the extermination inspector, we need to increase hydration and increase salt intake and avoid volume depletion and rapid orthostatic changes. I also explained stopping the diltiazem may be associated with increased heart rate response in atrial fibrillation. Therefore, I would recommend followin. I agree with holding the diltiazem for now. 2. Would hold her amiodarone for a day and repeat her EKG and follow her QT. 3. Would avoid QT prolonged medications. 4. Would increase the digoxin to better control her rate in atrial fibrillation. 5. Would avoid hypokalemia and hypomagnesemia. 6. Would interrogate her pacemaker to evaluate for ventricular arrhythmias. ( interrogation requested for 05.07.17) Further recommendations pending her clinical course. [id number]/[facility] #: [id number] JASVIR
[2017-05-07] MEDS: Levothyroxine TAB* 100 MCG TAB PO SCH (05:04)
[2017-05-07 06:18] LABS: INR 1.79 (0.77-1.02)
[2017-05-07] MEDS: Ascorbic Acid TAB* 500 MG PO SCH (09:26)
[2017-05-07] MEDS: Cholecalciferol TAB* 1000 UNITS PO SCH (09:26)
[2017-05-07] MEDS: Amiodarone TAB* 200 MG PO SCH (09:26)
[2017-05-07] MEDS: Baclofen TAB* 10 MG PO SCH ×3 (09:26→20:44)
[2017-05-07] MEDS: Magnesium Oxide TAB* 400 MG PO SCH ×2 (09:27→20:45)
[2017-05-07] MEDS: Fludrocortisone Acetate TAB* 0.1 MG PO SCH ×2 (09:27→20:45)
--- NOTE | 2017-05-07 14:47 | PN ---
Subjective Date of Service: 05/07/17 Interval History: Orthostatic with vital checks with RN and Physical therapy(also reportedly christopher to 44 at that time). Denies dizziness though stamina is still very reduced and can't tolerate standing for too long. Does not stand much at home ( for ~last 18 months) PPM interrogated and no changes made digoxin to 1.7 with the increased dose. reduced again. has not needed any pain meds for left arm for few days. Daughter of spouse Clover says likely took 3 days (04/28-04/30) of 400mg (instead of 200mg) of amiodarone preceding initial admission . after mistakenly doubling up her pills in pill box(Clover usually does it). Objective Active Medications: Acetaminophen (Tylenol Tab*) 650 mg PO Q6H PRN PRN Reason: FEVER/PAIN Last Admin: 05/06/17 06:12 Dose: 650 mg Amiodarone HCl (Cordarone Tab*) 200 mg PO DAILY [facility] Last Admin: 05/07/17 09:26 Dose: 200 mg Ascorbic Acid (Vitamin C Tab*) 1,000 mg PO DAILY [facility] Last Admin: 05/07/17 09:26 Dose: 1,000 mg Atorvastatin Calcium (Lipitor*) 40 mg PO 1700 [facility] Last Admin: 05/06/17 16:52 Dose: 40 mg Baclofen (Lioresal Tab*) 5 mg PO 0900 [facility] Last Admin: 05/07/17 09:26 Dose: 5 mg Baclofen (Lioresal Tab*) 5 mg PO 1400 [facility] Last Admin: 05/06/17 15:31 Dose: 5 mg Baclofen (Lioresal Tab*) 10 mg PO 2100 [facility] Last Admin: 05/06/17 21:06 Dose: 10 mg Cholecalciferol (Vitamin D Tab*) 2,000 units PO DAILY [facility] Last Admin: 05/07/17 09:26 Dose: 2,000 units Digoxin (Lanoxin Tab*) 0.125 mg PO 1700 [facility] Docusate Sodium (Colace Cap*) 100 mg PO BID PRN PRN Reason: CONSTIPATION Last Admin: 05/06/17 10:01 Dose: 100 mg Fludrocortisone Acetate (Florinef Tab*) 0.1 mg PO BID [facility] Levothyroxine Sodium (Synthroid Tab*) 100 mcg PO 0600 [facility] Last Admin: 05/07/17 05:04 Dose: 100 mcg Magnesium Oxide (Magox 400 Tab*) 400 mg PO BID [facility] Last Admin: 05/07/17 09:27 Dose: 400 mg Oxycodone/Acetaminophen (Percocet 5/325 Tab*) 1 tab PO Q4H PRN PRN Reason: Pain Last Admin: 05/05/17 21:35 Dose: 1 tab Pharmacy Profile Note (Coumadin Daily Reminder*) 0 note FOLLOW UP 1700 [facility] Last Admin: 05/06/17 16:53 Dose: 1 note Senna (Senokot Tab*) 1 tab PO BID PRN PRN Reason: CONSTIPATION Last Admin: 05/06/17 10:01 Dose: 1 tab Warfarin Sodium (Coumadin Tab(*)) 2 mg PO DAILY@1700 [facility] PRN Reason: Protocol Vital Signs - 8 hr 05/07/17 05/07/17 05/07/17 07:51 08:00 09:04 Temperature 98.1 F 98.7 F Pulse Rate 80 72 Respiratory 16 20 18 Rate Blood Pressure 140/69 118/55 (mmHg) O2 Sat by Pulse 94 97 Oximetry 05/07/17 05/07/17 05/07/17 11:20 13:39 13:40 Temperature 98.0 F Pulse Rate 66 68 81 Respiratory 20 Rate Blood Pressure 114/48 128/64 116/56 (mmHg) O2 Sat by Pulse 98 Oximetry Oxygen Devices in Use Now: None Appearance: NAD Eyes: No Scleral Icterus, PERRLA Ears/Nose/Mouth/Throat: NL Teeth, Lips, Gums Neck: NL Appearance and Movements; NL JVP, Trachea Midline Respiratory: Symmetrical Chest Expansion and Respiratory Effort, Clear to Auscultation Cardiovascular: NL Sounds; No Murmurs; No JVD, RRR Abdominal: NL Sounds; No Tenderness; No Distention, No Hepatosplenomegaly Extremities: - - trace edema b/l Skin: No Rash or Ulcers, No Nodules or Sclerosis Neurological: Alert and Oriented x 3, NL Sensation, NL Muscle Strength and Tone Nutrition: Taking PO's Result Diagrams: 05/06/17 05:40 05/06/17 16:59 Additional Lab and Data: Laboratory Results - last 24 hr 05/06/17 05/07/17 05/07/17 16:59 05:55 05:55 INR (Anticoag Therapy) 1.79 H Sodium 132 L Potassium 3.8 Chloride 100 L Carbon Dioxide 25 Anion Gap 7 BUN 16 Creatinine 0.53 Est GFR ( Amer) 142.7 Est GFR (Non-Af Amer) 111.0 BUN/Creatinine Ratio 30.2 H Glucose 114 H Calcium 8.1 L Digoxin 0.5 L 1.7 Microbiology and Other Data: Microbiology 05/06/17 08:15 Nasal Influenza Types A,B Antigen (LUÍS) - Final Specimen received for Influenza A/B Molecular testing 05/05/17 15:54 Nasal Nasal Screen MRSA (PCR)(LUÍS) - Final Mrsa Not Detected Assess/Plan/Problems-Billing Assessment: 81 yo female PMH afib (on coumadin, digoxin, amio and dilt(held here) and tachy- christopher s/p PPM, CVA w/ residual left leg weakness, hypothyroidism, HLD, HTN, vasovagal syncope and orthostatic hypotension, recent admission with syncope/rt humeral fracture p/w w/ another syncopal episode. now on florinef. PPM again interrogated w/o change. - Patient Problems (1) Syncope Current Visit: No Status: Acute Code(s): R55 - SYNCOPE AND COLLAPSE SNOMED Code(s): 175019101 Comment: orthostatics BPs worsened today. florinef increased to BID. f/u Cardiology recs PPM interrogated w/o change PT/OT plan back to [facility] for rehabilitation. (2) HTN (hypertension) Current Visit: No Status: Acute Code(s): I10 - ESSENTIAL (PRIMARY) HYPERTENSION SNOMED Code(s): 38683466 Comment: BP is under good control despite no meds (used to be dilt 120 and losartan 50mg) monitor. (3) Right humeral fracture Current Visit: No Status: Acute Code(s): S42.301A - UNSP FRACTURE OF SHAFT OF HUMERUS, RIGHT ARM, INIT SNOMED Code(s): 38963260 Comment: Dr. Henry outpatient followup on Tuesday 05/09 9am nonoperative management w/ sling and splint. PT OT uses cane and is right handed at baseline. plan to return to [facility] (4) Afib Current Visit: No Status: Chronic Priority: High Code(s): I48.91 - UNSPECIFIED ATRIAL FIBRILLATION SNOMED Code(s): 38357141 Comment: Continue digoxin (will reduce back to 0.125mg) and amiodarone. Continue coumadin, increase to 2mg from 1.5mg. previous home was 2mg but was supratherapeutic and spiking higher on that dose. INR daily. Appreciate cardiology recs. (5) CVA (cerebral infarction) Current Visit: No Status: Chronic Code(s): I63.9 - CEREBRAL INFARCTION, UNSPECIFIED SNOMED Code(s): 685878815 Comment: with some residual left leg weakness. (6) Hyperlipidemia LDL goal <100 Current Visit: No Status: Chronic Code(s): E78.5 - HYPERLIPIDEMIA, UNSPECIFIED SNOMED Code(s): 07747184 Comment: - Continue lipitor 40 mg daily. (7) Hypothyroidism Current Visit: No Status: Chronic Code(s): E03.9 - HYPOTHYROIDISM, UNSPECIFIED SNOMED Code(s): 36570086 Comment: - TSH is normal - Continue current dose of synthroid. (8) Anemia Current Visit: No Status: Acute Priority: Medium Onset Date: 09/27/14 Code(s): D64.9 - ANEMIA, UNSPECIFIED SNOMED Code(s): 082543472 Comment: hgb 10.1, normocytic. stable was iron deficient in 2014 and required transfusion. not currently on supplementation. (9) DVT prophylaxis Current Visit: No Status: Acute Priority: High Onset Date: 09/27/14 Code (s): IYL7956 - SNOMED Code(s): 511499735 Comment: on coumadin for AFib. (10) Fever Current Visit: Yes Status: Acute Code(s): R50.9 - FEVER, UNSPECIFIED SNOMED Code(s): 563378620 Comment: resolved. influenza negative UA wnl did vomit with syncope. monitor for signs of aspiration pna. wbc up 11.3 from 8.1 cxr wnl on admission. Status and Disposition: medicine inpatient. Likely to [facility] when stable.
[2017-05-07] MEDS: Digoxin TAB* 0.125 MG PO SCH (16:47)
[2017-05-07] MEDS: Atorvastatin* 40 MG TAB PO SCH (16:47)
[2017-05-07] MEDS: Warfarin TAB(*) 2 MG PO SCH (16:48)
--- NOTE | 2017-05-07 17:05 | PROCNOTE ---
Cardiology Procedure Note pacemaker dual chamber interogation performed 05/06/2017, interpreted 05/07/17 11 years longevity 92.3% Ap, 57.6% INTERNAL GRINDER 6.3% mode switch with average V rate 70-80's during episodes satisfactory sensitivity, impedence and threshold (see printed report in chart) Impression: Normal pacemaker function
--- NOTE | 2017-05-07 17:12 | PN ---
Subjective Date of Service: 05/07/17 Interval History: f/u syncope pacemaker interogation unrevealing no cp, palpitation, or syncope now on florinef orthostatics today 140/60 stand, 128/64 sit, upright 116/56 Medications Active Medications: Acetaminophen (Tylenol Tab*) 650 mg PO Q6H PRN PRN Reason: FEVER/PAIN Last Admin: 05/06/17 06:12 Dose: 650 mg Amiodarone HCl (Cordarone Tab*) 200 mg PO DAILY [facility] Last Admin: 05/07/17 09:26 Dose: 200 mg Ascorbic Acid (Vitamin C Tab*) 1,000 mg PO DAILY [facility] Last Admin: 05/07/17 09:26 Dose: 1,000 mg Atorvastatin Calcium (Lipitor*) 40 mg PO 1700 [facility] Last Admin: 05/07/17 16:47 Dose: 40 mg Baclofen (Lioresal Tab*) 5 mg PO 0900 [facility] Last Admin: 05/07/17 09:26 Dose: 5 mg Baclofen (Lioresal Tab*) 5 mg PO 1400 [facility] Last Admin: 05/07/17 14:49 Dose: 5 mg Baclofen (Lioresal Tab*) 10 mg PO 2100 [facility] Last Admin: 05/06/17 21:06 Dose: 10 mg Cholecalciferol (Vitamin D Tab*) 2,000 units PO DAILY [facility] Last Admin: 05/07/17 09:26 Dose: 2,000 units Digoxin (Lanoxin Tab*) 0.125 mg PO 1700 [facility] Last Admin: 05/07/17 16:47 Dose: 0.125 mg Docusate Sodium (Colace Cap*) 100 mg PO BID PRN PRN Reason: CONSTIPATION Last Admin: 05/06/17 10:01 Dose: 100 mg Fludrocortisone Acetate (Florinef Tab*) 0.1 mg PO BID [facility] Levothyroxine Sodium (Synthroid Tab*) 100 mcg PO 0600 [facility] Last Admin: 05/07/17 05:04 Dose: 100 mcg Magnesium Oxide (Magox 400 Tab*) 400 mg PO BID [facility] Last Admin: 05/07/17 09:27 Dose: 400 mg Oxycodone/Acetaminophen (Percocet 5/325 Tab*) 1 tab PO Q4H PRN PRN Reason: Pain Last Admin: 05/05/17 21:35 Dose: 1 tab Pharmacy Profile Note (Coumadin Daily Reminder*) 0 note FOLLOW UP [facility]00 [facility] Last Admin: 05/07/17 16:48 Dose: 1 note Senna (Senokot Tab*) 1 tab PO BID PRN PRN Reason: CONSTIPATION Last Admin: 05/06/17 10:01 Dose: 1 tab Warfarin Sodium (Coumadin Tab(*)) 2 mg PO DAILY@1700 [facility] PRN Reason: Protocol Last Admin: 05/07/17 16:48 Dose: 2 mg Objective Vital Signs: Temp Pulse Resp BP Pulse Ox 98.0 F 96 20 116/56 98 05/07/17 11:20 05/07/17 16:47 05/07/17 11:20 05/07/17 13:40 05/07/17 11:20 Oxygen Devices in Use Now: None Appearance: nad, pleasant Respiratory: Symmetrical Chest Expansion and Respiratory Effort, Clear to Auscultation Cardiovascular: RRR Extremities: No Edema Skin: No Rash or Ulcers Neurological: Alert and Oriented x 3 Laboratory Results: 05/06/17 05:40 05/06/17 16:59 INR (Anticoag Therapy) 1.79 (0.77-1.02) H 05/07/17 05:55 APTT 38.9 seconds (26.0-36.3) H 05/05/17 11:58 Total Bilirubin 0.60 mg/dL (0.2-1.0) 05/05/17 11:58 AST 51 U/L (13-39) H 05/05/17 11:58 ALT 42 U/L (7-52) 05/05/17 11:58 Alkaline Phosphatase 95 U/L (34-104) 05/05/17 11:58 B-Natriuretic Peptide 76 pg/mL (-100) 05/05/17 11:58 Total Protein 6.2 g/dL (6.4-8.9) L 05/05/17 11:58 Albumin 3.3 g/dL (3.2-5.2) 05/05/17 11:58 Globulin 2.9 g/dL (2-4) 05/05/17 11:58 Albumin/Globulin Ratio 1.1 (1-3) 05/05/17 11:58 TSH 5.39 mcIU/mL (0.34-5.60) 05/05/17 11:58 05/05/17 14:54 Troponin I 0.00 Assessment/Plan Elizabeth Robertson is an 81-year-old woman who has a history of sick sinus syndrome , paroxysmal atrial fibrillation with CVA in 2015 and implantation of a pacemaker admitted with recurrent vasovagal/orthostatic syncope. Diltiazem d/c'd and florinef added. Still orthostatic but now standing BP is SBP > 110 mmHg. Back in sinus rhythm on monitor. I think we have to accept resting SBP of at least 140 mmHg to help prevent these complication in the future.
[2017-05-08] MEDS: Levothyroxine TAB* 100 MCG TAB PO SCH (05:12)
[2017-05-08 05:40] LABS: INR 1.71 (0.77-1.02)
--- NOTE | 2017-05-08 08:50 | PN ---
Subjective Date of Service: 05/08/17 Interval History: Ms. Drummond was the subject of a CAT call this morning due to orthostatic syncope while on the toilet. She reports that she feels fine now. She was able to get up to the chair today for lunch without syncope. She denies shoulder pain. Objective Active Medications: Acetaminophen (Tylenol Tab*) 650 mg PO Q6H PRN Amiodarone HCl (Cordarone Tab*) 200 mg PO DAILY [facility] Ascorbic Acid (Vitamin C Tab*) 1,000 mg PO DAILY [facility] Atorvastatin Calcium (Lipitor*) 40 mg PO 1700 [facility] Baclofen (Lioresal Tab*) 5 mg PO 0900 [facility] Baclofen (Lioresal Tab*) 5 mg PO 1400 [facility] Baclofen (Lioresal Tab*) 10 mg PO 2100 [facility] Cholecalciferol (Vitamin D Tab*) 2,000 units PO DAILY [facility] Digoxin (Lanoxin Tab*) 0.125 mg PO 1700 [facility] Docusate Sodium (Colace Cap*) 100 mg PO BID PRN Fludrocortisone Acetate (Florinef Tab*) 0.1 mg PO BID [facility] Levothyroxine Sodium (Synthroid Tab*) 100 mcg PO 0600 [facility] Magnesium Oxide (Magox 400 Tab*) 400 mg PO BID [facility] Oxycodone/Acetaminophen (Percocet 5/325 Tab*) 1 tab PO Q4H PRN Pharmacy Profile Note (Coumadin Daily Reminder*) 0 note FOLLOW UP 1700 [facility] Senna (Senokot Tab*) 1 tab PO BID PRN Warfarin Sodium (Coumadin Tab(*)) 2 mg PO DAILY@1700 [facility] Vital Signs: Temp Pulse Resp BP Pulse Ox 98.1 F 101 18 139/67 97 05/08/17 08:12 05/08/17 08:12 05/08/17 08:12 05/08/17 08:12 05/08/17 08:12 Oxygen Devices in Use Now: None Appearance: Female sitting up in chair in NAD Eyes: No Scleral Icterus Ears/Nose/Mouth/Throat: Mucous Membranes Moist Neck: Trachea Midline Respiratory: Symmetrical Chest Expansion and Respiratory Effort, Clear to Auscultation Cardiovascular: NL Sounds; No Murmurs; No JVD, No Edema Abdominal: NL Sounds; No Tenderness; No Distention Lymphatic: No Cervical Adenopathy Extremities: No Edema, - - Right shoulder in splint, CMS intact Skin: No Rash or Ulcers Neurological: Alert and Oriented x 3, NL Muscle Strength and Tone Nutrition: Taking PO's Result Diagrams: 05/06/17 05:40 05/06/17 16:59 Additional Lab and Data: . Microbiology and Other Data: . Assess/Plan/Problems-Billing Assessment: Ms. Drummond is an 81 yo female PMH afib (on coumadin, digoxin, amio and dilt( held here) and tachy-christopher s/p PPM, CVA w/ residual left leg weakness, hypothyroidism, HLD, HTN, vasovagal syncope and orthostatic hypotension, recent admission with syncope/rt humeral fracture p/w w/ another syncopal episode. now on florinef. PPM again interrogated w/o change. - Patient Problems (1) Syncope Comment: - Remains severely orthostatic. - Florinef increased to TID today, IV fluids given as well - Appreciate cards consultation. PPM interrogated w/o change (2) Fever Comment: - Resolved. - No sign of infection besides vomiting on arrival. Influenza negative, UA wnl, cxr wnl on admission. (3) Anemia Comment: - Hgb 10.1, normocytic. stable - Was iron deficient in 2014 and required transfusion. Not currently on supplementation. (4) HTN (hypertension) Comment: - BP is under good control despite no meds (used to be diltiazem 120 and losartan 50mg)monitor. (5) Right humeral fracture Comment: - Dr. Henry outpatient followup was scheduled Tuesday 05/09 9am, appt cancelled , Dr. Wood paged to have ortho eval today or tomorrow. Has coaptation splint in place. - Plan to return to [facility] at discharge. (6) Afib Comment: - Continue digoxin (will reduce back to 0.125mg) and amiodarone. - Continue coumadin, continue 2mg from 1.5mg. - INR daily. (7) CVA (cerebral infarction) Comment: - with some residual left leg weakness. (8) Hyperlipidemia LDL goal <100 Comment: - Continue lipitor 40 mg daily. (9) Hypothyroidism Comment: - TSH is normal - Continue current dose of synthroid. (10) DVT prophylaxis Comment: - On coumadin for afib, SCDs. (11) Full code status Comment: Status and Disposition: Medicine inpatient. Likely to [facility] when stable.
[2017-05-08] MEDS ORDERED: NS 0.9% 500 ML* 500 ML IV ONE (08:59)
[2017-05-08] MEDS ORDERED: Amiodarone TAB* 200 MG PO SCH (09:00)
[2017-05-08] MEDS: Magnesium Oxide TAB* 400 MG PO SCH ×2 (09:02→22:46)
[2017-05-08] MEDS: Amiodarone TAB* 200 MG PO SCH (09:02)
[2017-05-08] MEDS: Baclofen TAB* 10 MG PO SCH ×3 (09:03→22:45)
[2017-05-08] MEDS: Fludrocortisone Acetate TAB* 0.1 MG PO SCH ×3 (09:03→22:46)
[2017-05-08] MEDS: Cholecalciferol TAB* 1000 UNITS PO SCH (09:03)
[2017-05-08] MEDS: Ascorbic Acid TAB* 500 MG PO SCH (09:03)
[2017-05-08] MEDS ORDERED: NS 0.9% 1000 ML* 500 ML IV ONE (09:30)
[2017-05-08] MEDS ORDERED: NS 0.45% KCl 20 Meq 1000 ML* 1,000 ML IV SCH (12:00)
[2017-05-08] MEDS: Potassium Chloride LIQUID* 20 MEQ PACKET PO SCH (12:33)
[2017-05-08] MEDS: NS 0.9% w/ 40 Meq KCL 1000 ML* 1,000 ML IV SCH (16:57)
[2017-05-08] MEDS: Digoxin TAB* 0.125 MG PO SCH (16:58)
[2017-05-08] MEDS: Warfarin TAB(*) 2 MG PO SCH (16:58)
[2017-05-08] MEDS: Atorvastatin* 40 MG TAB PO SCH (16:58)
[2017-05-09] MEDS: NS 0.9% w/ 40 Meq KCL 1000 ML* 1,000 ML IV SCH (03:01)
[2017-05-09] MEDS: Levothyroxine TAB* 100 MCG TAB PO SCH (05:34)
[2017-05-09 06:41] LABS: INR 1.79 (0.77-1.02)
[2017-05-09 06:53] LABS: EGFR Non-African American 130.7 (>60)
[2017-05-09] MEDS: Magnesium Oxide TAB* 400 MG PO SCH ×2 (09:11→22:42)
[2017-05-09] MEDS: Amiodarone TAB* 200 MG PO SCH (09:11)
[2017-05-09] MEDS: Ascorbic Acid TAB* 500 MG PO SCH (09:11)
[2017-05-09] MEDS: Cholecalciferol TAB* 1000 UNITS PO SCH (09:11)
[2017-05-09] MEDS: Potassium Chloride LIQUID* 20 MEQ PACKET PO SCH (09:11)
[2017-05-09] MEDS: Fludrocortisone Acetate TAB* 0.1 MG PO SCH ×3 (09:11→22:42)
[2017-05-09] MEDS: Baclofen TAB* 10 MG PO SCH ×3 (09:12→22:42)
--- NOTE | 2017-05-09 09:14 | RAD ---
INDICATION: Traumatic fracture right [id number] COMPARISON: Right humerus May 01, 2017 TECHNIQUE: 2 views of the right shoulder were obtained. FINDINGS: There is a casted, comminuted fracture of the proximal diaphysis of the humerus extending to the metaphyseal region. The fracture fragments are unchanged in position and alignment. IMPRESSION: NO CHANGE IN THE PROXIMAL HUMERAL FRACTURE.
--- NOTE | 2017-05-09 14:15 | PN ---
Subjective Date of Service: 05/09/17 Interval History: Patient able to stand and walk around without dizziness, N/V, changes in vision , or presyncope. Patient also denies palpitations, chest pain, SOB, abdominal pain, diarrhea, constipation, dysuria, or other pain. Patient states that she does not feel like [facility] was a safe place for her to go for rehab and would like consideration of other facilities. Discussed with sample case porter and family and they are thinking about different options of discharge and support at home. Family History: Unchanged from Admission Social History: Unchanged from Admission Past Medical History: Unchanged from Admission Objective Active Medications: Acetaminophen (Tylenol Tab*) 650 mg PO Q6H PRN PRN Reason: FEVER/PAIN Last Admin: 05/06/17 06:12 Dose: 650 mg Amiodarone HCl (Cordarone Tab*) 200 mg PO DAILY [facility] Last Admin: 05/09/17 09:11 Dose: 200 mg Ascorbic Acid (Vitamin C Tab*) 1,000 mg PO DAILY [facility] Last Admin: 05/09/17 09:11 Dose: 1,000 mg Atorvastatin Calcium (Lipitor*) 40 mg PO 1700 [facility] Last Admin: 05/08/17 16:58 Dose: 40 mg Baclofen (Lioresal Tab*) 5 mg PO 0900 [facility] Last Admin: 05/09/17 09:12 Dose: 5 mg Baclofen (Lioresal Tab*) 5 mg PO 1400 [facility] Last Admin: 05/09/17 13:41 Dose: 5 mg Baclofen (Lioresal Tab*) 10 mg PO 2100 [facility] Last Admin: 05/08/17 22:45 Dose: 10 mg Cholecalciferol (Vitamin D Tab*) 2,000 units PO DAILY [facility] Last Admin: 05/09/17 09:11 Dose: 2,000 units Digoxin (Lanoxin Tab*) 0.125 mg PO 1700 [facility] Last Admin: 05/08/17 16:58 Dose: 0.125 mg Docusate Sodium (Colace Cap*) 100 mg PO BID PRN PRN Reason: CONSTIPATION Last Admin: 05/06/17 10:01 Dose: 100 mg Fludrocortisone Acetate (Florinef Tab*) 0.1 mg PO TID [facility] Last Admin: 05/09/17 13:41 Dose: 0.1 mg Levothyroxine Sodium (Synthroid Tab*) 100 mcg PO 0600 [facility] Last Admin: 05/09/17 05:34 Dose: 100 mcg Magnesium Oxide (Magox 400 Tab*) 400 mg PO BID [facility] Last Admin: 05/09/17 09:11 Dose: 400 mg Oxycodone/Acetaminophen (Percocet 5/325 Tab*) 1 tab PO Q4H PRN PRN Reason: Pain Last Admin: 05/05/17 21:35 Dose: 1 tab Pharmacy Profile Note (Coumadin Daily Reminder*) 0 note FOLLOW UP 1700 [facility] Last Admin: 05/08/17 17:00 Dose: 1 note Potassium Chloride (Klor-Con Liquid*) 20 meq PO DAILY [facility] Last Admin: 05/09/17 09:11 Dose: 20 meq Senna (Senokot Tab*) 1 tab PO BID PRN PRN Reason: CONSTIPATION Last Admin: 05/06/17 10:01 Dose: 1 tab Warfarin Sodium (Coumadin Tab(*)) 3 mg PO ONCE@1700 [facility] PRN Reason: Protocol Stop: 05/09/17 17:01 Vital Signs - 8 hr 05/09/17 05/09/17 05/09/17 07:15 08:00 08:03 Temperature 98.0 F 98.0 F Pulse Rate 60 60 Respiratory 20 16 20 Rate Blood Pressure 152/61 152/61 (mmHg) O2 Sat by Pulse 98 98 Oximetry 05/09/17 05/09/17 05/09/17 08:18 08:34 11:15 Temperature 98.1 F Pulse Rate 74 61 66 Respiratory 16 16 Rate Blood Pressure 149/62 149/60 130/56 (mmHg) O2 Sat by Pulse 98 99 Oximetry Oxygen Devices in Use Now: None Appearance: Patient is an 81yo female who appears stated age and is sitting in the chair in [facility]. Eyes: No Scleral Icterus, PERRLA Ears/Nose/Mouth/Throat: NL Teeth, Lips, Gums, Clear Oropharnyx, Mucous Membranes Moist Neck: NL Appearance and Movements; NL JVP, Trachea Midline Respiratory: Symmetrical Chest Expansion and Respiratory Effort, Clear to Auscultation Cardiovascular: NL Sounds; No Murmurs; No JVD, RRR, No Edema Abdominal: NL Sounds; No Tenderness; No Distention, No Hepatosplenomegaly Lymphatic: No Cervical Adenopathy Extremities: No Edema, No Clubbing, Cyanosis, - - Right arm in sling with brace. Pulses and senstation intact. Skin: No Rash or Ulcers, No Nodules or Sclerosis Neurological: Alert and Oriented x 3, NL Sensation, NL Muscle Strength and Tone , - - CN II-XII intact. Result Diagrams: 05/06/17 05:40 05/09/17 06:23 Additional Lab and Data: . Microbiology and Other Data: . Assess/Plan/Problems-Billing Assessment: Ms. Drummond is an 81 yo female PMH afib (on coumadin, digoxin, amio and dilt( held here) and tachy-christopher s/p PPM, CVA w/ residual left leg weakness, hypothyroidism, HLD, HTN, vasovagal syncope and orthostatic hypotension, recent admission with syncope/rt humeral fracture p/w w/ another syncopal episode. now on florinef. PPM again interrogated w/o change. - Patient Problems (1) Fever Current Visit: Yes Status: Acute Code(s): R50.9 - FEVER, UNSPECIFIED SNOMED Code(s): 590548895 Comment: Resolved. No sign of infection besides vomiting on arrival. Influenza negative, UA wnl, cxr wnl on admission. (2) Anemia Current Visit: No Status: Acute Priority: Medium Onset Date: 09/27/14 Code(s): D64.9 - ANEMIA, UNSPECIFIED SNOMED Code(s): 605486564 Comment: Hgb 10.1, normocytic. stable Was iron deficient in 2014 and required transfusion. Not currently on supplementation. Follow up outpatient. (3) HTN (hypertension) Current Visit: No Status: Acute Code(s): I10 - ESSENTIAL (PRIMARY) HYPERTENSION SNOMED Code(s): 06931958 Comment: BP slightly hypertensive, will be permissive due to orthostatic hypotension. (4) Right humeral fracture Current Visit: No Status: Acute Code(s): S42.301A - UNSP FRACTURE OF SHAFT OF HUMERUS, RIGHT ARM, INIT SNOMED Code(s): 91559408 Comment: Appreciate ortho input. Dr. Henry outpatient followup was scheduled Tuesday 05/09 9am, appt cancelled, Repeat XR without change. Ortho will change coaptation splint today. Follow up with Ortho outpatient. No plan for surgery at this time. (5) Syncope Current Visit: No Status: Acute Code(s): R55 - SYNCOPE AND COLLAPSE SNOMED Code(s): 578487866 Comment: No orthostatis today Danny CLEMENTE Appreciate cards consultation. PPM interrogated w/o change D/C fluids. Will repeat in AM. (6) Afib Current Visit: No Status: Chronic Priority: High Code(s): I48.91 - UNSPECIFIED ATRIAL FIBRILLATION SNOMED Code(s): 20263078 Comment: Continue digoxin (will reduce back to 0.125mg) and amiodarone. Continue coumadin. Will give 3mg today. Medication changes may be affecting INR. INR daily. (7) CVA (cerebral infarction) Current Visit: No Status: Chronic Code(s): I63.9 - CEREBRAL INFARCTION, UNSPECIFIED SNOMED Code(s): 012560219 Comment: No residual weakness on exam. (8) Hyperlipidemia LDL goal <100 Current Visit: No Status: Chronic Code(s): E78.5 - HYPERLIPIDEMIA, UNSPECIFIED SNOMED Code(s): 07399867 Comment: Continue lipitor 40 mg daily. (9) Hypothyroidism Current Visit: No Status: Chronic Code(s): E03.9 - HYPOTHYROIDISM, UNSPECIFIED SNOMED Code(s): 99171675 Comment: Continue current dose of synthroid. (10) DVT prophylaxis Current Visit: No Status: Acute Priority: High Onset Date: 09/27/14 Code (s): BBH0397 - SNOMED Code(s): 809495029 Comment: On coumadin for afib, SCDs. ' Subtherapeutic, increase warfarin. (11) Full code status Current Visit: No Status: Acute Code(s): Z78.9 - OTHER SPECIFIED HEALTH STATUS SNOMED Code(s): 862385228 Comment: Status and Disposition: Medicine inpatient. Rehab at discharge, family considering locations at this time.
[2017-05-09] MEDS: Digoxin TAB* 0.125 MG PO SCH (16:37)
[2017-05-09] MEDS: Atorvastatin* 40 MG TAB PO SCH (16:37)
[2017-05-09] MEDS ORDERED: Warfarin TAB(*) 3 MG PO ONE (17:00)
--- NOTE | 2017-05-09 18:16 | PN ---
Subjective Date of Service: 05/09/17 - CC: LOC, dizzy Interval History: Pt. walked in room, not yet getting regular PT. No cane in room. At home was using a cane in the right arm (the now injured arm). No SOB and new symptoms on Fluorinef. Feeling well today. Admits she was anxious the day she lost consciousness, probably not drinking fluids optimally. Medications Active Medications: Acetaminophen (Tylenol Tab*) 650 mg PO Q6H PRN PRN Reason: FEVER/PAIN Last Admin: 05/06/17 06:12 Dose: 650 mg Amiodarone HCl (Cordarone Tab*) 200 mg PO DAILY [facility] Last Admin: 05/09/17 09:11 Dose: 200 mg Ascorbic Acid (Vitamin C Tab*) 1,000 mg PO DAILY [facility] Last Admin: 05/09/17 09:11 Dose: 1,000 mg Atorvastatin Calcium (Lipitor*) 40 mg PO 1700 [facility] Last Admin: 05/09/17 16:37 Dose: 40 mg Baclofen (Lioresal Tab*) 5 mg PO 0900 [facility] Last Admin: 05/09/17 09:12 Dose: 5 mg Baclofen (Lioresal Tab*) 5 mg PO 1400 [facility] Last Admin: 05/09/17 13:41 Dose: 5 mg Baclofen (Lioresal Tab*) 10 mg PO 2100 [facility] Last Admin: 05/08/17 22:45 Dose: 10 mg Cholecalciferol (Vitamin D Tab*) 2,000 units PO DAILY [facility] Last Admin: 05/09/17 09:11 Dose: 2,000 units Digoxin (Lanoxin Tab*) 0.125 mg PO 1700 [facility] Last Admin: 05/09/17 16:37 Dose: 0.125 mg Docusate Sodium (Colace Cap*) 100 mg PO BID PRN PRN Reason: CONSTIPATION Last Admin: 05/06/17 10:01 Dose: 100 mg Fludrocortisone Acetate (Florinef Tab*) 0.1 mg PO TID [facility] Last Admin: 05/09/17 13:41 Dose: 0.1 mg Levothyroxine Sodium (Synthroid Tab*) 100 mcg PO 0600 [facility] Last Admin: 05/09/17 05:34 Dose: 100 mcg Magnesium Oxide (Magox 400 Tab*) 400 mg PO BID [facility] Last Admin: 05/09/17 09:11 Dose: 400 mg Oxycodone/Acetaminophen (Percocet 5/325 Tab*) 1 tab PO Q4H PRN PRN Reason: Pain Last Admin: 05/05/17 21:35 Dose: 1 tab Pharmacy Profile Note (Coumadin Daily Reminder*) 0 note FOLLOW UP 1700 [facility] Last Admin: 05/09/17 16:40 Dose: 1 note Potassium Chloride (Klor-Con Liquid*) 20 meq PO DAILY [facility] Last Admin: 05/09/17 09:11 Dose: 20 meq Senna (Senokot Tab*) 1 tab PO BID PRN PRN Reason: CONSTIPATION Last Admin: 05/06/17 10:01 Dose: 1 tab Objective Vital Signs: Temp Pulse Resp BP Pulse Ox 98.1 F 70 18 134/63 98 05/09/17 15:28 05/09/17 16:37 05/09/17 15:28 05/09/17 15:28 05/09/17 15:28 Othostatic Today: Lyin/58 Sittin/57 Standin/61 Vital Signs 05/08/17 05/08/17 05/08/17 19:37 20:00 23:33 Temperature 98.2 F 99.0 F Pulse Rate 65 65 Respiratory 16 16 Rate Blood Pressure 127/55 129/58 (mmHg) O2 Sat by Pulse 99 97 Oximetry 05/09/17 05/09/17 05/09/17 03:32 07:15 08:00 Temperature 98.6 F 98.0 F Pulse Rate 62 60 Respiratory 16 20 16 Rate Blood Pressure 138/57 152/61 (mmHg) O2 Sat by Pulse 97 98 Oximetry 05/09/17 05/09/17 05/09/17 08:03 08:18 08:34 Temperature 98.0 F Pulse Rate 60 74 61 Respiratory 20 16 Rate Blood Pressure 152/61 149/62 149/60 (mmHg) O2 Sat by Pulse 98 98 Oximetry 05/09/17 05/09/17 05/09/17 11:15 11:22 15:28 Temperature 98.1 F 98.1 F 98.1 F Pulse Rate 66 66 64 Respiratory 16 16 18 Rate Blood Pressure 130/56 130/56 134/63 (mmHg) O2 Sat by Pulse 99 99 98 Oximetry 05/09/17 16:37 Temperature Pulse Rate 70 Respiratory Rate Blood Pressure (mmHg) O2 Sat by Pulse Oximetry Oxygen Devices in Use Now: None Appearance: Seated, talking to son, recliner chair in NAD. Eyes: No Scleral Icterus, PERRLA Ears/Nose/Mouth/Throat: Clear Oropharnyx, Mucous Membranes Moist Neck: NL Appearance and Movements; NL JVP, Trachea Midline Respiratory: Symmetrical Chest Expansion and Respiratory Effort, Clear to Auscultation Cardiovascular: RRR Abdominal: NL Sounds; No Tenderness; No Distention, No Hepatosplenomegaly Extremities: No Edema Skin: No Rash or Ulcers Neurological: Alert and Oriented x 3 Lines/Tubes/Other Access: Clean, Dry and Intact Peripheral IV Laboratory Results: 05/06/17 05:40 05/09/17 06:23 INR (Anticoag Therapy) 1.79 (0.77-1.02) H 05/09/17 06:23 APTT 38.9 seconds (26.0-36.3) H 05/05/17 11:58 Total Bilirubin 0.60 mg/dL (0.2-1.0) 05/05/17 11:58 AST 51 U/L (13-39) H 05/05/17 11:58 ALT 42 U/L (7-52) 05/05/17 11:58 Alkaline Phosphatase 95 U/L (34-104) 05/05/17 11:58 B-Natriuretic Peptide 76 pg/mL (-100) 05/05/17 11:58 Total Protein 6.2 g/dL (6.4-8.9) L 05/05/17 11:58 Albumin 3.3 g/dL (3.2-5.2) 05/05/17 11:58 Globulin 2.9 g/dL (2-4) 05/05/17 11:58 Albumin/Globulin Ratio 1.1 (1-3) 05/05/17 11:58 TSH 5.39 mcIU/mL (0.34-5.60) 05/05/17 11:58 05/05/17 14:54 Troponin I 0.00 EKG Data: Monitor: NSR Assessment/Plan Elizabeth Robertson is an 81-year-old woman who has a history of sick sinus syndrome , paroxysmal atrial fibrillation with CVA in 2014 and implantation of a pacemaker admitted with recurrent vasovagal/orthostatic syncope. She fractured Right prox. humerus, no sx planned per Dr. Wood. Orthostasis much improved/resolved with flourinef, continue. Anemia new this admission, ? related for fracture and anticoagulation or could she have another source? Syncope: Looks related to orthostasis/neurocardiogenic syncope, not new and doing well on fludricortisone. PAF: Continue amiodarone and anticoagulation. Cardiology can follow her distantly, see PRN.
--- NOTE | 2017-05-09 18:17 | PN ---
Progress Note - Progress Note Date of Service: 05/09/17 SOAP: Subjective: 81 yo female, sustained a syncopal episode and fell, sustaining a right humerus fx and had been admitted. Placed in a coaptation splint. Was at [facility], but had another episode and was admitted yesterday. Call to check on the fx, as she had an appointment to Dr. Henry today. Reports doing well. Arm not very uncomfortable and has been able to use the hand/wrist for simple activities Objective: Splint is in good condition and was allowed to remain. Skin intact over the topside of the shoulder, minimal echymosis and swelling about the shoulder. Easily can move the hand and wrist, with no swelling distally. XRAYS: Done yesterday show good alignment of the fx. Assessment: Right humerus fx Plan: Doing well. Follow up in the office next week for likely conversion to a Beckett brace
--- NOTE | 2017-05-09 20:15 | CONS ---
CONSULTATION REPORT: DATE OF CONSULT: 05/09/17 ATTENDING PROVIDER: Dr. Joshua Wood. The patient also previously seen earlier this month by Dr. Angela Henry. CHIEF COMPLAINT: Right humerus followup. HISTORY OF PRESENT ILLNESS: The patient is an 81-year-old female, who presented to the emergency room on 05/05/17 due to an episode of dizziness on the morning of 05/05/17. The patient has been having repeated syncopal episodes as well as dizziness. This is how she originally fractured her right humerus during her last admission on 04/30/17. She was placed in a coaptation splint. She was scheduled for a followup today, 05/09/17, in our orthopedic office but due to continued syncopal episodes, the patient is an inpatient in the hospital at this time. She was seen today in consultation. She reports that she has no pain of her right upper extremity. She has no numbness of her right upper extremity. She has been wearing a sling as well as a coaptation splint without difficulty. She has no skin breakdown. She has no discomfort with the coaptation splint. She is able to use her right hand gradually. REVIEW OF SYSTEMS: The patient confirms continued syncopal episodes with unknown cause at this time. She has been seen by Cardiology. General: The patient denies fever or chills. Cardio: No chest pain. Respiratory: No shortness of breath. MSK: No pain of right upper extremity. Neuro: No decreased sensation of right upper extremity. Skin: Continued bruising, but no skin breakdown. No open abrasions, lesions, or friction, irritation. PHYSICAL EXAM: Vital Signs: Temperature 98.1, pulse rate 66, respiratory rate 16, oxygen saturation 99%, blood pressure 130/56. In general, the patient is well appearing. She is in no acute distress. Cardio: S1, S2. Lungs: Clear to auscultation bilaterally. Right upper extremity: The patient is wearing coaptation splint as well as a sling. Splint is in good condition, CDI. She continues to have significant bruising in the right axilla as well as the proximal humerus. She has mild edema distal to the splint in her forearm and hand. The patient has full range of motion including extension of her right wrist. She is able to extend, flex, ulnar deviate and deviate radially all 5 fingers. Intact flexion, extension, abduction, and adduction. Able to do a thumbs- up sign as well as an A-OK sign. The patient's sensation is intact throughout her right upper extremity. Her radial pulse is 2+. Capillary refill is less than 2 seconds distally. Skin: She has no skin breakdown surrounding her splint on her right upper extremity nor the coaptation splint or the sling that goes around to neck. She has no complaints of discomfort from the sling or from the splint. DIAGNOSTIC STUDIES/LAB DATA: Imaging, right shoulder x-ray done 05/09/17 reveals no change in the proximal humerus fracture as interpreted by Radiology. White blood cell count 11.3, hemoglobin 10.1, hematocrit 30. Sodium 138, carbon dioxide 21, creatinine 0.46, the urine-creatinine ratio is 28.3, calcium 7.9. ASSESSMENT: Right humerus fracture. PLAN: Coaptation splint was in good condition. When callus is forms, elam brace will be placed. Follow up in office in 1 week. She will remain nonweightbearing of her right upper extremity. She will also be seen by Dr. Nina peralta [facility]. NAE GUPTA [id number]/CPS #: [id number] MTDKristopher
[2017-05-10] MEDS: Levothyroxine TAB* 100 MCG TAB PO SCH (05:28)
[2017-05-10 05:58] LABS: ABS Basophils 0.1 10^3/ul (0-0.2); ABS Eosinophils 0 10^3/ul (0-0.6); ABS Lymphocytes 1.6 10^3/ul (1.0-4.8); ABS Monocytes 0.5 10^3/ul (0-0.8); ABS Neutrophils 4.9 10^3/ul (1.5-7.7); ABS Nucleated RBC 0 10^3/ul; Eosinophil % 0.6 % (0-6); Hematocrit 31 % (35-47); Hemoglobin 10.7 g/dl (12.0-16.0); Lymphocyte % 22.4 % (25-47); Mean Corpuscular HGB Conc 34 g/dl (31-36); Mean Corpuscular Hemoglobin 33 pg (27-31); Mean Corpuscular Volume 97 fL (80-97); Mean Platelet Volume 7.7 um3 (7.4-10.4); Nucleated Red Blood Cells % 0; Platelet Count 283 10^3/ul (150-450); Red Blood Count 3.22 10^6/ul (4.0-5.4); Red Cell Distribution Width 14 % (10.5-15); White Blood Count 7.2 10^3/ul (3.5-10.8)
[2017-05-10 06:03] LABS: INR 2.36 (0.77-1.02)
[2017-05-10 06:17] LABS: EGFR Non-African American 121.5 (>60)
[2017-05-10] MEDS ORDERED: Potassium Chloride LIQUID* 20 MEQ PACKET PO ONE (07:02)
[2017-05-10 08:21] VITALS: BP 150/61
[2017-05-10] MEDS: Magnesium Oxide TAB* 400 MG PO SCH (08:37)
[2017-05-10] MEDS: Amiodarone TAB* 200 MG PO SCH (08:37)
[2017-05-10] MEDS: Cholecalciferol TAB* 1000 UNITS PO SCH (08:37)
[2017-05-10] MEDS: Ascorbic Acid TAB* 500 MG PO SCH (08:37)
[2017-05-10] MEDS: Baclofen TAB* 10 MG PO SCH (08:39)
[2017-05-10] MEDS: Fludrocortisone Acetate TAB* 0.1 MG PO SCH (08:40)
[2017-05-10] MEDS: Potassium Chloride LIQUID* 20 MEQ PACKET PO SCH (08:41)
--- NOTE | 2017-05-10 11:27 | DS ---
CC: Dr. Jo Leon; Dr. Gama Rausch; Dr. Lori Chavarria; Dr. Joshua Wood* DATE OF ADMISSION: 05/05/2017. DATE OF DISCHARGE: 05/10/2017. PRIMARY CARE PHYSICIAN: Dr. Jo Leon. MY ATTENDING PHYSICIAN WHILE IN THE HOSPITAL: Dr. Andrew Pandya* (dictated by NAE Correa). CONSULTING SHEET METAL FOREMAN: Dr. Gama Rausch and Dr. Lori Chavarria. CONSULTING ORTHOPEDIST: Dr. Joshua Wood. PRIMARY DISCHARGE DIAGNOSES: Orthostatic hypotension with syncope, fall, comminuted right humerus fracture. SECONDARY DISCHARGE DIAGNOSES: History of CVA, atrial fibrillation, hypertension, tachybrady syndrome, status post pacemaker, hypothyroidism. STUDIES DONE WHILE IN THE HOSPITAL: 1. Chest x-ray from 05/05/2017 showed no active cardiopulmonary disease. 2. Electrocardiogram from 05/05/2017 showed atrial paced complexes, rate of 62 , QTC of 533, left axis deviation, T-wave inversions in V1 through V4, T-wave flattening at V5 and V6, no other abnormalities. 3. Repeat EKG from 05/06/2017 showed atrial fibrillation, QTC of 461, resolution of T-wave inversions in V3 and V4, no significant changes from previous exam. 4. EKG from 05/08/2017 showed atrial paced rhythm, recurrence of T-wave inversions, no other significant changes. 5. Brain CT from 05/05/2017 showed no acute intracranial pathology, chronic small vessel ischemic change. 6. Shoulder x-ray from 05/09/2017 read as no change in the proximal humeral fracture. MEDICATIONS AT DISCHARGE: 1. Glucosamine Chondroitin one cap p.o. q.p.m. 2. Digoxin 0.125 mg p.o. q.p.m. 3. Atorvastatin 40 mg p.o. q.p.m. 4. Ascorbic acid 1,000 mg p.o. daily. 5. Vitamin D 2,000 units p.o. daily. 6. Synthroid 100 mcg p.o. every morning. 7. Baclofen 5 mg p.o. 0900 and 1400, and Baclofen 10 mg p.o. 2100. 8. Amiodarone 200 mg p.o. daily. 9. Percocet one tab p.o. q.4 hours as needed for pain. 10. Senokot one tab p.o. b.i.d. as needed. 11. Docusate 100 mg p.o. b.i.d. as needed. 12. Tylenol 650 mg p.o. q.6 hours as needed. 13. Fludrocortisone 0.1 mg p.o. t.i.d. 14. Magnesium Oxide 400 mg p.o. b.i.d. 15. Potassium Chloride 20 mEq p.o. daily. 16. Warfarin 2 mg p.o. daily. New medications at discharge: Tylenol, Fludrocortisone, Magnesium Oxide, Potassium Chloride, Warfarin. Medications discontinued at discharge: Warfarin, vitamin D3, Magnesium Oxide 600 p.o. b.i.d., Diltiazem 120 mg p.o. nightly. HOSPITAL COURSE: This is a brief summary of the patient's presentation. For more details, please see the history and physical from Dr. Dave Hernandez on 2017. In brief, the patient is an 81-year-old female with a past medical history significant for the above who presents after on the day of admission felt dizzy after urinating at [facility] and lost consciousness and vomited. The patient was significantly orthostatic in the emergency department with very low blood pressures and no heart rate response. The patient had no other significant changes. The patient was admitted from April 30 to May 03 at this institution with vasovagal syncope and orthostatic hypotension complicated by a right humerus fracture. The patient had a slight temperature. The patient was started on Florinef and had no orthostasis. The patient's Diltiazem was stopped. The patient was mildly anemic. The patient had a slight white blood cell count. The patient was seen in consultation by Dr. Arik Alvarez. Dr. Alvarez recommended to continue to hold her Diltiazem, increasing Digoxin, supplementing potassium and magnesium, and interrogating her pacemaker. The patient's pacemaker interrogation was performed and showed no significant ventricular arrhythmias indicating torsades. The patient's Digoxin level increased to 1.7 on the increased level of Digoxin and she was decreased again to 0.125 mg daily. The patient had another episode of orthostatic hypotension. The patient possibly doubled up on her Amiodarone for the several days before she came into the hospital initially from April 28 to April 30. The patient's INR was significantly subtherapeutic while she was in the hospital. The patient had a fever on her initial presentation to the hospital which resolved without antibiotics. The patient's Florinef was increased from two times a day to three times a day on 05/08/2017. The patient has another episode of orthostatic syncope on 05/08/2017 for orthostatic hypotension, being unable to get up to the chair on May 08 without feeling like she needed to pass out. The patient tolerated the increased Florinef well, was not orthostatic on 05/09/2017. The patient was seen in consultation by Dr. Wood of Orthopedics and the splint was noted to be functioning properly, fitting well , and that it should be continued until follow-up in one week. The patient had a shoulder x-ray which was read as above. The patient was seen in consultation by Dr. Lori Chavarria, who is her outpatient it account manager, who agreed with current management. The patient was amenable for discharge back to [facility] on 05/10/2017. PHYSICAL EXAMINATION ON THE DAY OF DISCHARGE: General: The patient is an 81- year-old female who appears her stated age and is sitting comfortable in bed, in no acute distress. Vital Signs at the time evaluation: Temperature 98.9, pulse rate 63, respiratory rate 20, oxygen saturation 96 percent on room air, blood pressure 150/61. HEENT: Head normocephalic, atraumatic. Scleral anicteric. No conjunctival injection. Nasal mucosa moist. Oral mucosa moist. No pharyngeal erythema, discharge or exudate. Neck: Supple, nontender. No lymphadenopathy. No carotid bruit auscultated. No JVD. Cardiac: Regular rate and rhythm. No clicks, murmurs, gallops, or rubs. Pulses 2+ in the bilateral dorsalis pedis and posterior tibialis and radial areas. No bilateral lower extremity edema or calf tenderness. Respiratory: Clear to auscultation bilaterally. No wheezes, rales or rhonchi. Good air exchange bilaterally. Abdomen: Soft, nontender, nondistended. Bowel sounds present. Normoactive in all four quadrants. No hepatosplenomegaly. No abdominal bruits auscultated. Genitourinary: No suprapubic or CVA tenderness. Skin: Clean, dry, intact. Ecchymosis over the right shoulder. Musculoskeletal: The patient's right arm is immobilized in a sling with a coaptation brace, well fitting with good capillary refill, pulses, and sensation distally. Neuro: Cranial nerves II through XII intact. No focal deficits. No residual weakness noted from her previous stroke. Psychiatric: Pleasant and cooperative. LABORATORY DATA ON THE DAY OF DISCHARGE: White blood cell count 7.2, hemoglobin 10.7, hematocrit 31, platelet count 283, MCH 33; INR 2.36; sodium 140 , potassium 3.2, chloride 106, carbon dioxide 24, anion gap 10, BUN 11, creatinine 0.49, glucose 90, calcium 8.1. Most recent Digoxin level 1.1 on . DISCHARGE PLAN: The patient will be discharged back to [facility] to continue with physical therapy, occupational therapy, and restoring her functional status while she convalescence from her humeral fracture. The patient should be aware of the continued possibility of orthostatic hypotension. The patient should have a BP target of the high end of normal which is where her blood pressure has been since she has been in the hospital. The patient should take time after standing up to stabilize herself before walking. The patient should have a follow-up CBC in one week. The patient should have her INR's followed per protocol. The patient should follow-up with Cardiology as needed. The patient should return to the hospital for alarming symptoms such as syncope, chest pain, or significantly increased shortness of breath. The patient should take her medications as prescribed. The patient should also have a Digoxin level checked in one week. The patient should engage in activity as tolerated and have a heart healthy diet without caffeine. Approximately 60 minutes were spent on this discharge, 30 of which were spent face- to-face with the patient, obtaining history and physical, and discussing treatment plan. NAE CORREA [id number]/CPS #: [id number] JASVIR
[2017-05-10] MEDS ORDERED: Warfarin TAB(*) 2 MG PO SCH (17:00)
== END 2017-05-10 11:55 | DRG 312 ==
LOC: ED 11:01 → MEDTELE 13:29
PROVIDERS: ADMIT Internal Medicine; ATTEND Internal Medicine
PROC: 4B02XSZ Measurement of Cardiac Pacemaker, External Approach (ICD-10-PCS; principal; 2017-05-07)
DX: I95.1 Orthostatic hypotension (principal); S42.201A Unspecified fracture of upper end of right humerus, initial encounter for closed fracture; I69.354 Hemiplegia and hemiparesis following cerebral infarction affecting left non-dominant side; E78.00 Pure hypercholesterolemia, unspecified; E03.9 Hypothyroidism, unspecified; M17.12 Unilateral primary osteoarthritis, left knee; F41.0 Panic disorder [episodic paroxysmal anxiety]; F40.240 Claustrophobia; I08.0 Rheumatic disorders of both mitral and aortic valves; W18.30XA Fall on same level, unspecified, initial encounter; E78.5 Hyperlipidemia, unspecified; D64.9 Anemia, unspecified; R50.9 Fever, unspecified; I48.0 Paroxysmal atrial fibrillation; Z95.0 Presence of cardiac pacemaker; Z85.828 Personal history of other malignant neoplasm of skin; Z88.2 Allergy status to sulfonamides; Z88.8 Allergy status to other drugs, medicaments and biological substances; Z87.891 Personal history of nicotine dependence; Z82.49 Family history of ischemic heart disease and other diseases of the circulatory system; Z80.1 Family history of malignant neoplasm of trachea, bronchus and lung; Y92.009 Unspecified place in unspecified non-institutional (private) residence as the place of occurrence of the external cause; Z79.01 Long term (current) use of anticoagulants
CPT/HCPCS: 36415; 70450; 71045; 80048; 80053; 80162; 81003; 83605; 83735; 83880; 84443; 84484; 85025; 85610; 85730; 87502; 87641; 93005; 99284; A9270-GY; G8978-GP-CJ; G8978-GP-CN; G8979-GP-CI; G8979-GP-CJ; G8981-GP-CK; G8982-GP-CH; G8987-GO-CK; G8988-GO-CI; J1160; J3475

== ENCOUNTER → 2018-07-19 09:54 | Day surgery (SDC) | payer MEDICARE, OTHER ==
[~2018-07-19 09:54] MED LIST: Heparin 2 UNITS/ML IVPREMIX* 3,000 UNIT/1,500 ML BAG IV ONE; Heparin(*) 1000 UNIT/ML 10 ML VIAL CATH LAB IV ONE; Iohexol 350 (CONTRAST) 200 ML MDV IV ONE; Lidocaine 1% INJ* 10 MG/ML 30 ML SDV ONE; Midazolam* 1 MG/ML 5 ML VIAL (5 MG) ONE; NS 0.9% 1000 ML** 1,000 ML IV SCH; VERAPAMIL 2.5 MG/ML 2 ML VIAL ** 5 mg/2 ml ONE; fentaNYL* 50 MCG/ML 2 ML VIAL (100 MCG VIAL) ONE; nitroGLYCERIN DRIP* 25,000 MCG/250 ML BTL ONE
[2018-07-19 10:51] LABS: INR 1.56 (0.82-1.09)
[2018-07-19 17:25] VITALS: BP 123/62
--- NOTE | 2018-07-19 18:43 | CATH ---
CC: Dr. Durant; Meenakshi Ochoa NP; Dr. Chavarria * CATH REPORT: DATE OF PROCEDURE: 07/19/18 - [facility] CATH PRIMARY CARE PHYSICIAN: Dr. Durant. CARDIOLOGISTS: Meenakshi Ochoa NP and Dr. Chavarria. PROCEDURE: Right radial artery access, right heart catheterization, left heart catheterization with simultaneous measurement of RV and LV pressures. Bilateral selective coronary cineangiography, left heart catheterization, left ventriculography. HISTORY: An 82-year-old woman with previously normal LV function, repeat echo showed decrease in LVEF to 30% with moderate dilatation of the ascending aorta, she also has suspected hepatic cirrhosis based on an ultrasound, has not had a biopsy. She had paracentesis yesterday with removal of 5.25 L of fluid. Right heart cath was planned to rule out constriction, restriction. PROCEDURE ACCESS: Right radial artery sheath 6F slender, right antecubital vein IV converted to 5-Lib[place] sheath. DIAGNOSTIC CATHETERS: 5F [place], 5F TIG4, 5F pigtail. MEDICATIONS: 1. Subcu lidocaine. 2. IV Versed. 3. IV fentanyl. 4. Heparin 3000 units. 5. Verapamil 3 mg. 6. Nitroglycerin 300 mcg IA. HEMODYNAMICS: Resting right-sided pressures: RA mean 9, RV 23/10, wedge mean 11 with AO 13, V 12. PA 24/12, mean 17. LV 102/6-9, RV 26/9-11, simultaneous recording. Repeated simultaneous RV and LV post contrast: LV 115/12-18, RV 37/ 13-18. There is no square root sign. ANGIOGRAPHY: LV: LV size is mildly increased, there is anterolateral hypokinesis, estimated LVEF 35%. There is moderate dilatation of the ascending aorta and 2+ MR. RCA: The RCA is codominant, relatively small, supplies a small caliber PDA, has no stenosis. There is catheter-related proximal spasm. Left main: The left main is large, has no stenosis. LAD: The LAD is large, extends past the apex and supplies distal half of the inferior septum, the LAD has mild scattered luminal irregularity, supplies a large first diagonal, the LAD has no significant stenosis. Circumflex: The circumflex is large, codominant with a large ramus branch, a smaller and then a large marginal, a small posterolateral, and ends with a small circumflex PDA. The circumflex has no significant stenosis. CONCLUSION: 1. No significant obstructive coronary artery disease. 2. No hemodynamics of constriction or restriction. Normal resting filling pressures. 3. LV systolic dysfunction consistent with cardiomyopathy. In a patient with hyperglycemia consider hemachromatosis. 4. Successful right radial access. [id number]/[facility] #: [id number] JASVIR
== END | disposition home or self-care (01) ==
LOC: CHICATH 09:54
PROVIDERS: ATTEND Internal Medicine Cardiovascular Disease
DX: I50.22 Chronic systolic (congestive) heart failure (principal); I08.3 Combined rheumatic disorders of mitral, aortic and tricuspid valves; I27.20 Pulmonary hypertension, unspecified; I42.9 Cardiomyopathy, unspecified; I48.0 Paroxysmal atrial fibrillation; I49.5 Sick sinus syndrome; R94.39 Abnormal result of other cardiovascular function study; I95.1 Orthostatic hypotension; I11.0 Hypertensive heart disease with heart failure; R94.31 Abnormal electrocardiogram [ECG] [EKG]; Z95.0 Presence of cardiac pacemaker; Z86.73 Personal history of transient ischemic attack (TIA), and cerebral infarction without residual deficits; E03.9 Hypothyroidism, unspecified; Z87.891 Personal history of nicotine dependence; Z79.01 Long term (current) use of anticoagulants
CPT/HCPCS: 36415; 85610; 93460; 99156; 99157; C1887; J1644; J2250; J3010